=== PATIENT | male | born 1925 | race Caucasian/White ===

== ENCOUNTER 2016-09-29 11:20 | Observation (INO) ==
[2016-09-29] MEDS ORDERED: 0.9 % Sodium Chloride 1,000 ML IVC ONE (11:31)
[2016-09-29] MEDS ORDERED: Ondansetron 4 MG/2 ML VIAL IVP ONE (11:31)
[2016-09-29] MEDS ORDERED: Thiamine (B-1) 100 MG in D5% in Water 50 ML IVPB STA (11:33)
[2016-09-29] MEDS ORDERED: Folic Acid 1 MG in D5% in Water 50 ML IVPB STA (11:33)
[2016-09-29 12:05] LABS: Basophils % 0.2 %; Eosinophils # 0.1 K/mcL (0.0-0.6); Eosinophils % 1.8 %; Hematocrit 45.8 % (37.5-50.1); Hemoglobin 15.4 g/dL (12.9-16.9); Immature Granulocytes % 0.4 % (0-4); Lymphocytes # 0.5 K/mcL (0.6-4.6); Lymphocytes % 9.1 %; Mean Corpuscular HGB Conc 33.6 g/dL (31.6-35.5); Mean Corpuscular Hemoglobin 30.9 pg (28.0-33.3); Mean Platelet Volume 9.8 fL (9.4-12.4); Monocytes # 0.1 K/mcL (0.0-1.3); Neutrophils # 4.3 K/mcL (1.6-8.9); Platelet Count 172 K/mcL (140-400); Red Blood Count 4.98 M/mcL (4.19-5.50); Red Cell Distribution Width 12.8 % (11.5-14.5); Segmented Neutrophils % 87.5 %
[2016-09-29 12:21] LABS: Bilirubin,Urine Negative (Negative); Blood,Urine Trace (Negative); Clarity,Urine Clear (Clear); Color,Urine Yellow (Yellow); Glucose,Urine (UA) Normal (Normal); Ketones,Urine Trace mg/dL (Negative); Leukocyte Esterase,Urine Negative (Negative); Nitrite,Urine Negative (Negative); Protein,Urine 30 mg/dL (Neg-Trace); Specific Gravity,Urine 1.014 (1.010-1.025); Urobilinogen,Urine Normal (Normal)
[2016-09-29 12:22] LABS: BUN/Creatinine Ratio 13 (6-26); Blood Urea Nitrogen 13 mg/dL (8-26); Calcium 9.8 mg/dL (8.6-10.8); Carbon Dioxide 23 mEq/L (19-29); Chloride 104 mEq/L (98-109); Glucose 120 mg/dL (70-99); Lipase 24 Units/L (8-78); Osmolality,Calculated 287 (280-300); Potassium 4.7 mEq/L (3.5-4.5); Sodium 138 mEq/L (136-145); eGFR For African Americans > 60 (> 60); eGFR For Non-African Americans > 60 (> 60)
[2016-09-29 12:24] LABS: Amphetamine Screen,Urine Negative ng/mL (Cutoff=1000); Bacteria,Urine None Seen per hpf (None-Few); Barbiturate Screen,Urine Negative ng/mL (Cutoff=200); Benzodiazepines Screen,Urine Negative ng/mL (Cutoff=200); Cannabinoid Screen,Urine Negative ng/mL (Cutoff = 50); Cocaine Screen,Urine Negative ng/mL (Cutoff= 300); Hyaline Casts,Urine None Seen per lpf (None-Few); Opiate Screen,Urine Negative ng/mL (Cutoff=300); Phencyclidine Screen,Urine Negative ng/mL (Cutoff=25); RBC,Urine 0-3 per hpf (0-3); Squamous Epithelial Cell,Urine Few per lpf (None-Few); WBC,Urine 0-3 per hpf (0-3)
--- NOTE | 2016-09-29 12:35 | Emergency Department Note ---
Disposition Clinical Impression: Abnormal EKG, Elevated troponin Coronary artery disease Qualifiers: Coronary Disease-Associated Artery/Lesion type: unspecified vessel or lesion type [place] vs. transplanted heart: [place] heart Associated angina: without angina Qualified Code(s): I25.10 - Atherosclerotic heart disease of [place] coronary artery without angina pectoris Disposition: Admitted As Inpatient Condition: Fair Referrals: NO,PCP [Non-Partnered Physician] - Forms: Work/School Release, ED Satisfaction Letter Time of Disposition: 15:24 General Adult HPI - General Chief complaint: ED General Medical Stated complaint: shakiness Source: patient, EMS Mode of arrival: ambulatory Limitations: no limitations Nursing Notes Reviewed: Yes Vital Signs Reviewed: Yes - History of Present Illness HPI Narrative: Patient presents to emergency room with complaint of shaking. He woke up this morning a right-sided chest wall pain. He has a long-standing history of anxiety. He called his family complaining of the symptoms then when they arrive to shaking. The symptoms resolved after EMS arrived and provided him with glucose. His Accu-Chek on arrival was 70. There is concern that he might be hypoglycemic. 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 Location: abdomen Radiation: non-radiation Pain Severity: mild Pain Scale: 0 Quality: burning Consistency: now resolved Improves with: nothing Worsens with: nothing Associated symptoms: Reports: denies other symptoms Treatments Prior to Arrival: none - Related Data Home Medications Medication Instructions Recorded Confirmed Aspirin 81 mg PO DAILY 10/11/14 09/29/16 Carvedilol [Coreg] 3.125 mg PO BIDWM 10/11/14 09/29/16 Clopidogrel [Plavix] 75 mg PO DAILY 10/11/14 09/29/16 Docusate Sodium [Dulcolax Stool 100 mg PO DAILY PRN 10/11/14 09/29/16 Softener] Latanoprost [Xalatan] 1 drop LEFT EYE HS 10/11/14 09/29/16 Lisinopril [Zestril] 10 mg PO DAILY 10/11/14 09/29/16 Multivitamin with Minerals 1 each PO DAILY 10/11/14 09/29/16 [Myvitalife] [place]-3 Fatty Acids/Fish Oil [Fish 1 each PO BID 10/11/14 09/29/[address] 1,000 mg Softgel] Pantoprazole Sodium 40 mg PO DAILY 10/11/14 09/29/16 Simvastatin [Zocor] 40 mg PO DAILY 10/11/14 09/29/16 Tamsulosin HCl [Flomax] 0.4 mg PO DAILY 10/11/14 09/29/16 ALPRAZolam [Xanax 0.5 MG Tablet] 0.5 mg PO DAILY PRN 09/29/16 09/29/16 Cholecalciferol (D-3) [Vitamin D] 1,000 unit PO DAILY 09/29/16 09/29/16 Cyanocobalamin (Vitamin B-12) 1,000 mcg SL DAILY 09/29/16 09/29/16 [Vitamin B-12] Hydrocortisone 2.5% CREAM [Cortaid] 1 appl TP DAILY PRN 09/29/16 09/29/16 Allergies Allergy/AdvReac Type Severity Reaction Status Date / Time No Known Allergies Allergy Verified 09/29/16 13:26 All systems ED: reviewed and negative except as stated. Review of Systems: As Per HPI Constitutional: Denies: fever, chills, weakness ENT ED: Denies: ear pain, throat pain Cardiovascular: Reports: chest pain. Denies: palpitations, dyspnea on exertion Respiratory: Denies: cough, dyspnea, wheezes, hemoptysis Gastrointestinal: Denies: abdominal pain, nausea, vomiting, diarrhea, constipation Genitourinary: Denies: urgency, dysuria Musculoskeletal: Denies: back pain, neck pain Integumentary: Denies: rash Neurological: Denies: headache Psychiatric: Reports: anxiety Past Medical History - Past Medical History Attestation: Yes The following information was validated with the patient. Source: patient Medical history: Reports: GERD, hyperlipidemia, hypertension Surgical history: Reports: breast surgery, carotid endarterectomy, coronary bypass (CABG) Psychiatric history: Reports: no psych history - Social History Smoking Status: Former smoker Smokeless Tobacco Status: No Alcohol use: Reports: none Drug use: Reports: none Physical Exam - General Limitations: no limitations General appearance: alert, in no apparent distress - Head Head exam: atraumatic, normocephalic, normal inspection - ENT ENT exam: normal exam, normal oropharynx, mucous membranes moist - Neck Neck exam: Present: normal inspection, full ROM, trachea midline - Chest Chest inspection: Present: normal inspection, symmetric chest wall rise. Absent : tenderness - Respiratory Respiratory exam: Present: normal lung sounds bilaterally. Absent: respiratory distress, accessory muscle use - Cardiovascular Cardiovascular exam: Present: regular rate, normal rhythm, normal heart sounds - Abdominal Exam Abdominal exam: Present: soft, Non-Tender, normal bowel sounds. Absent: tenderness, distention, guarding, rebound, rigidity, Yang's sign, Rovsing's sign, tenderness at McBurney's Point, pulsatile mass, hernia - Extremities Exam Extremities exam: Present: normal inspection, full ROM, normal capillary refill. Absent: tenderness - Back Exam Back exam: Present: normal inspection, full ROM, tenderness - Neurological Exam Neurological exam: Present: alert, oriented X3, CN II-XII intact - Skin Skin exam: Present: warm, dry, intact, normal color Course Course Narrative: Patient seen and examined the time of arrival by EMS. See history of present illness. 89-year-old male presents from home today with complaint of shaking as well as right-sided chest wall pain. He describes it as similar to anxiety. He presented here from home with an Accu-Chek is 70 is given dextrose in transit. He is mentating appropriate now with no shaking. Vital signs are reviewed and are stable. Physical exam is otherwise benign. Head is atraumatic pupils are equal round reactive to light. Patient is answering questions appropriately with no acute signs of neurologic deficit asymmetry or slurring speech. Lungs are clear heart is regular. Abdomen soft nontender nondistended with no guarding or rigidity no peritoneal extending. He has no reproducible symptoms on palpation of the left or right flanks. Patient has no signs of pitting edema swelling in lower extremities at this time. Family is at the bedside they recommended he come in the emergency room today because the presentation symptoms. Physical exam is otherwise benign. Lungs are clear heart is regular patient has tenderness over the anterior chest wall but he has been rubbing on his chest for a while. Denies any chest pain shortness of breath fevers chills nausea vomiting or diarrhea prior to these events. According to family he does have a significant history of vascular related issues including coronary artery disease with four-vessel bypass a lower extremity bypass as well as calcified areas in his vessels at this time. family deny any changes medical history at this time. 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 Denies any alcohol use at this point. Treatment course for alcohol intoxication as well as dehydration chest discomfort and pain and abdominal symptoms to be over this time. EKG troponin labs CT imaging of the abdomen urinalysis lactic acid all ordered this point. Patient reported with a baby aspirin Takes aspirin daily as well as Plavix. Disposition pending treatment course and evaluation here. He did take his morning medications including his Plavix at this time. Concern is noted for multiple etiology of this time including cardiac pulmonary and intra-abdominal. We will continue to monitor until disposition treatment course are completed. EKG was collected initially showing ST depressions in the inferior lateral precordial leads with no acute signs of ST segment elevation. This is different in comparison to an EKG done on 12/14/14. Again patient is not describing any chest pain or symptoms at this time. He has no other complaints he is mentating appropriately and acting appropriately in the bed. - Reevaluation(s) Reevaluation #1: Patient's troponin is markedly elevated at 0.25. Repeat EKG collected at the bedside that shows stable morphology with no acute signs of ST segment elevation. He still has intermittent PVCs. Patient again is still denying chest discomfort or pain. Consultation placed to the on-call personal care attendant Dr. Wallace. Waiting for his call back for evaluation management. Currently patient does not have acute coronary syndrome based on EKG but the troponin is concerning this time. We will follow recommendations from cardiology for heparin drip and intervention. Patient otherwise is resting comfortably in the bed in no distress at this time Time: 12:55 Reevaluation #2: Patient has negative CT of the chest. When discussed the findings with the family. Patient still symptom-free in no distress at this point. Family and no other concerns or issues. We will bring him in the hospital for definitive evaluation of troponin as well as EKG abnormalities. Heparin drip ordered at this time secondary the request of personal care attendant. Detailed review the presentation symptoms medical intervention and workup were discussed with the on -call hospitalist Dr. Alexis. We reviewed the medical intervention including EKGs serial evaluation and angiography. He had no other concerns or symptoms at this time no other complaints or issues. Patient will be admitted the hospital for definitive evaluation by cardiology and medical management by the hospitalist group. Patient is otherwise stable in the bed at this time. We will continue to monitor here in the emergency room until the admission process is completed Time: 15:24 Vital Signs Temperature 98.1 F 09/29/16 11:23 Pulse Rate 100 09/29/16 11:23 Respiratory Rate 22 09/29/16 11:23 Blood Pressure 182/84 09/29/16 11:23 O2 Sat by Pulse Oximetry 93 09/29/16 11:23 Temperature 98.1 F 09/29/16 11:23 Pulse Rate 91 09/29/16 14:27 Respiratory Rate 20 09/29/16 14:27 Blood Pressure 115/61 09/29/16 14:27 O2 Sat by Pulse Oximetry 94 09/29/16 14:27 Oxygen Delivery Oxygen Delivery Nasal Cannula Medical Decision Making - MDM Narrative Medical decision making narrative: Shaking, elevated troponin I, abnormal EKG - Medical Records Medical records reviewed: Yes I reviewed the patient's medical records. - Lab Data Lab results reviewed: Yes I reviewed the patient's lab results. Result diagrams: 09/29/16 11:45 09/29/16 11:45 Lab Results 09/29/16 09/29/16 09/29/16 Range/Units 11:45 11:45 11:45 WBC 4.9 (4.3-11.1) K/mcL RBC 4.98 (4.19-5.50) M/mcL Hgb 15.4 (12.9-16.9) g/dL Hct 45.8 (37.5-50.1) % MCV 92.0 (83.0-100.0) fL MCH 30.9 (28.0-33.3) pg MCHC 33.6 (31.6-35.5) g/dL RDW 12.8 (11.5-14.5) % Plt Count 172 (140-400) K/mcL MPV 9.8 (9.4-12.4) fL Immature Gran % 0.4 (0-4) % Seg Neutrophils % 87.5 % Lymphocytes % 9.1 % Monocytes % 1.0 % Eosinophils % 1.8 % Basophils % 0.2 % Neutrophils # 4.3 (1.6-8.9) K/mcL Lymphocytes # 0.5 L (0.6-4.6) K/mcL Monocytes # 0.1 (0.0-1.3) K/mcL Eosinophils # 0.1 (0.0-0.6) K/mcL Basophils # 0.0 (0.0-0.2) K/mcL Sodium 138 (136-145) mEq/L Potassium 4.7 H (3.5-4.5) mEq/L Chloride 104 (98-109) mEq/L Carbon Dioxide 23 (19-29) mEq/L BUN 13 (8-26) mg/dL Creatinine 1.04 (0.72-1.25) mg/dL Est GFR ( Amer) > 60 (> 60) Est GFR (Non-Af Amer) > 60 (> 60) BUN/Creatinine Ratio 13 (6-26) Glucose 120 H (70-99) mg/dL Calculated Osmolality 287 (280-300) Lactic Acid (0.5-2.2) mmol/L Calcium 9.8 (8.6-10.8) mg/dL Troponin I (0-0.03) ng/mL Lipase 24 (8-78) Units/L Urine Color (Yellow) Urine Clarity (Clear) Urine pH (5.0-8.0) pH Units Ur Specific [place] (1.010-1.025) Urine Protein (Neg-Trace) mg/dL Urine Glucose (UA) (Normal) mg/dL Urine Ketones (Negative) mg/dL Urine Blood (Negative) Urine Nitrite (Negative) Urine Bilirubin (Negative) Urine Urobilinogen (Normal) mg/dL Ur Leukocyte Esterase (Negative) Urine Microscopic RBC (0-3) per hpf Urine Microscopic WBC (0-3) per hpf Ur Squamous Epith Cells (None-Few) per lpf Urine Bacteria (None-Few) per hpf Hyaline Casts (None-Few) per lpf Ur Culture Indicated? (NO) Urine Opiates Screen (Ouqbao=210) ng/mL Ur Barbiturates Screen (Kltggu=196) ng/mL Ur Phencyclidine Scrn (Cutoff=25) ng/mL Ur Amphetamines Screen (Lzdlnq=3026) ng/mL U Benzodiazepines Scrn (Bhsmdy=194) ng/mL Urine Cocaine Screen (Cutoff= 300) ng/mL U Marijuana (THC) Screen (Cutoff = 50) ng/mL Ethyl Alcohol < 10 (0-10) mg/dL 09/29/16 09/29/16 09/29/16 Range/Units 11:45 11:58 11:58 WBC (4.3-11.1) K/mcL RBC (4.19-5.50) M/mcL Hgb (12.9-16.9) g/dL Hct (37.5-50.1) % MCV (83.0-100.0) fL MCH (28.0-33.3) pg MCHC (31.6-35.5) g/dL RDW (11.5-14.5) % Plt Count (140-400) K/mcL MPV (9.4-12.4) fL Immature Gran % (0-4) % Seg Neutrophils % % Lymphocytes % % Monocytes % % Eosinophils % % Basophils % % Neutrophils # (1.6-8.9) K/mcL Lymphocytes # (0.6-4.6) K/mcL Monocytes # (0.0-1.3) K/mcL Eosinophils # (0.0-0.6) K/mcL Basophils # (0.0-0.2) K/mcL Sodium (136-145) mEq/L Potassium (3.5-4.5) mEq/L Chloride (98-109) mEq/L Carbon Dioxide (19-29) mEq/L BUN (8-26) mg/dL Creatinine (0.72-1.25) mg/dL Est GFR ( Amer) (> 60) Est GFR (Non-Af Amer) (> 60) BUN/Creatinine Ratio (6-26) Glucose (70-99) mg/dL Calculated Osmolality (280-300) Lactic Acid (0.5-2.2) mmol/L Calcium (8.6-10.8) mg/dL Troponin I 0.25 H* (0-0.03) ng/mL Lipase (8-78) Units/L Urine Color Yellow (Yellow) Urine Clarity Clear (Clear) Urine pH 6.0 (5.0-8.0) pH Units Ur Specific [place] 1.014 (1.010-1.025) Urine Protein 30 H (Neg-Trace) mg/dL Urine Glucose (UA) Normal (Normal) mg/dL Urine Ketones Trace H (Negative) mg/dL Urine Blood Trace H (Negative) Urine Nitrite Negative (Negative) Urine Bilirubin Negative (Negative) Urine Urobilinogen Normal (Normal) mg/dL Ur Leukocyte Esterase Negative (Negative) Urine Microscopic RBC 0-3 (0-3) per hpf Urine Microscopic WBC 0-3 (0-3) per hpf Ur Squamous Epith Cells Few (None-Few) per lpf Urine Bacteria None Seen (None-Few) per hpf Hyaline Casts None Seen (None-Few) per lpf Ur Culture Indicated? NO (NO) Urine Opiates Screen Negative (Vlxobl=406) ng/mL Ur Barbiturates Screen Negative (Lkacmk=543) ng/mL Ur Phencyclidine Scrn Negative (Cutoff=25) ng/mL Ur Amphetamines Screen Negative (Pfeugz=0732) ng/mL U Benzodiazepines Scrn Negative (Nkrmod=508) ng/mL Urine Cocaine Screen Negative (Cutoff= 300) ng/mL U Marijuana (THC) Screen Negative (Cutoff = 50) ng/mL Ethyl Alcohol (0-10) mg/dL 09/29/16 Range/Units 12:53 WBC (4.3-11.1) K/mcL RBC (4.19-5.50) M/mcL Hgb (12.9-16.9) g/dL Hct (37.5-50.1) % MCV (83.0-100.0) fL MCH (28.0-33.3) pg MCHC (31.6-35.5) g/dL RDW (11.5-14.5) % Plt Count (140-400) K/mcL MPV (9.4-12.4) fL Immature Gran % (0-4) % Seg Neutrophils % % Lymphocytes % % Monocytes % % Eosinophils % % Basophils % % Neutrophils # (1.6-8.9) K/mcL Lymphocytes # (0.6-4.6) K/mcL Monocytes # (0.0-1.3) K/mcL Eosinophils # (0.0-0.6) K/mcL Basophils # (0.0-0.2) K/mcL Sodium (136-145) mEq/L Potassium (3.5-4.5) mEq/L Chloride (98-109) mEq/L Carbon Dioxide (19-29) mEq/L BUN (8-26) mg/dL Creatinine (0.72-1.25) mg/dL Est GFR ( Amer) (> 60) Est GFR (Non-Af Amer) (> 60) BUN/Creatinine Ratio (6-26) Glucose (70-99) mg/dL Calculated Osmolality (280-300) Lactic Acid 2.0 (0.5-2.2) mmol/L Calcium (8.6-10.8) mg/dL Troponin I (0-0.03) ng/mL Lipase (8-78) Units/L Urine Color (Yellow) Urine Clarity (Clear) Urine pH (5.0-8.0) pH Units Ur Specific [place] (1.010-1.025) Urine Protein (Neg-Trace) mg/dL Urine Glucose (UA) (Normal) mg/dL Urine Ketones (Negative) mg/dL Urine Blood (Negative) Urine Nitrite (Negative) Urine Bilirubin (Negative) Urine Urobilinogen (Normal) mg/dL Ur Leukocyte Esterase (Negative) Urine Microscopic RBC (0-3) per hpf Urine Microscopic WBC (0-3) per hpf Ur Squamous Epith Cells (None-Few) per lpf Urine Bacteria (None-Few) per hpf Hyaline Casts (None-Few) per lpf Ur Culture Indicated? (NO) Urine Opiates Screen (Pcwtpt=673) ng/mL Ur Barbiturates Screen (Jggjzq=411) ng/mL Ur Phencyclidine Scrn (Cutoff=25) ng/mL Ur Amphetamines Screen (Wishbb=7042) ng/mL U Benzodiazepines Scrn (Wwtnoy=993) ng/mL Urine Cocaine Screen (Cutoff= 300) ng/mL U Marijuana (THC) Screen (Cutoff = 50) ng/mL Ethyl Alcohol (0-10) mg/dL - Radiology Data Radiology results reviewed: Yes I reviewed the patient's radiology results. CT imaging of the head is negative for acute intracranial pathology. CT imaging of the abdomen is negative for acute abdominal pathology chest x-ray shows possible effusion - EKG Data EKG #1 EKG attestation: Yes I reviewed and interpreted this EKG. EKG shows normal: sinus rhythm, axis, intervals, QRS complexes Rate: normal Rhythm: NSR [place]/QRS: normal ST segment depression in: I, II, III, aVL, v2, v3, v4, v5, v6 When compared to previous EKG there are: changes noted Interpretation: nonspecific ST-T wave changes (12/14/09) EKG #2 EKG attestation: Yes I reviewed and interpreted this EKG. EKG shows normal: sinus rhythm, axis, intervals, QRS complexes Rate: normal Rhythm: NSR [place]/QRS: normal T wave inversions noted in: II, III, aVL, v2, v3, v4, v5, v6 When compared to previous EKG there are: no significant changes Interpretation: no acute changes, unchanged when compared to prior tracing (date ) Critical Care Time Critical Care Time: Yes Total Critical Care Time: 35 Attestation: Critical care performed: Time is exclusive of separately billable procedures. Time includes: direct patient care, patient reassessment, coordination of patient care, interpretation of data (laboratory data, radiology data, and respiratory data), review of patient's medical records, medical consultation and documentation of patient care. Procedures included in critical care time: Procedures excluded from critical care time:
[2016-09-29] MEDS ORDERED: *HR* Heparin 5,000 UNIT/ML VIAL IVP PRN (15:06)
[2016-09-29] MEDS ORDERED: *HR* Heparin 5,000 UNIT/ML VIAL IVP ONE (15:06)
[2016-09-29 15:58] LABS: INR 1.2; Prothrombin Time 12.8 Seconds (9.4-12.1)
[2016-09-29 16:01] LABS: Activated Partial Thrombo Time 30.4 Seconds (26.0-36.0)
[2016-09-29] MEDS: Heparin 25,000 UNIT/500 ML D5W 25,000 UNIT/500 ML MLS IVC SCH (16:34)
[2016-09-29] MEDS ORDERED: *HR* HYDROcodone/Acet 5/325 mg TABLET PO PRN (17:26)
[2016-09-29] MEDS ORDERED: Ondansetron 4 MG/2 ML VIAL IVP PRN (17:26)
[2016-09-29] MEDS ORDERED: Acetaminophen 325 MG TABLET PO PRN (17:26)
[2016-09-29] MEDS ORDERED: *HR* Morphine 2 MG/ML SYRINGE IVP PRN (17:26)
[2016-09-29] MEDS ORDERED: Naloxone 0.4 MG/ML INJ IVP PRN (17:26)
[2016-09-29] MEDS ORDERED: ALPRAZolam 0.5 MG TABLET PO PRN (17:33)
[2016-09-29] MEDS: Cholecalciferol (D-3) 1,000 UNIT TABLET PO SCH (18:25)
[2016-09-29] MEDS: Cyanocobalamin (B-12) 1,000 MCG TABLET PO SCH (18:25)
[2016-09-29] MEDS: Aspirin 81 MG TAB.CHEW PO SCH (18:25)
[2016-09-29] MEDS: 0.9 % Sodium Chloride 1,000 ML IVC SCH (18:25)
[2016-09-29] MEDS: Pantoprazole 40 MG VIAL IVP SCH (18:25)
--- NOTE | 2016-09-29 18:37 | Internal Med History&Physical ---
<Channing Wright - Last Filed: 09/29/16 22:02> Date of Encounter: 09/29/16 Time of Encounter: 16:45 Assessment and Plan (1) Abnormal EKG Current visit: Yes Status: Acute Patient presents with abnormal EKG today which showed sinus rhythm with frequent ventricular premature complexes, indeterminate axis, moderate ST depression. Will repeat EKG. Cardiology consult ordered. EV echocardiogram and bilateral carotid Doppler duplex imaging ordered. Will trend troponins x2. (2) Elevated troponin Current visit: Yes Status: Acute Patient presents with elevated troponin of 0.25 on admission to the ED. Patient has history of quadruple bypass 12 years ago. Patient denies chest pain or OK symptoms but EKG today shows sinus rhythm with frequent ventricular premature complexes, indeterminate axis, moderate ST depression. Cardiology consult ordered in ED. Will trend troponins x2. Patient to be placed on continuous cardiac telemetry with supplemental O2 and continuous SpO2 monitoring. EV echocardiogram and bilateral carotid Doppler duplex imaging ordered. (3) Occasional tremors Current visit: Yes Status: Acute Patient presents with report of acute and uncontrollable tremors this morning while at home. Patient reported he got up at 5 a.m. and took several sips of wine and went back to bed. Patient states he did not eat breakfast this morning. Squad checked his blood glucose which was 70 when they arrived and they administered glucose. Patient denies history of diabetes. CT/CTAs today are all unremarkable for CVA. Orthostatic vital signs and BPs ordered. Blood glucose monitoring ordered Q6 with low-dose correction insulin and hypoglycemia protocol ordered. (4) Hypoglycemia Current visit: Yes Status: Acute Patient presents with acute hypoglycemia prior to admission to the ED today with blood glucose of 70. Patient was given glucose by the squad. Patient denies history of diabetes. A1c ordered. Blood glucose monitoring Q6 ordered with low-dose correction insulin sliding scale with hypoglycemia protocol ordered if necessary. (5) GERD (gastroesophageal reflux disease) Current visit: Yes Status: Chronic Patient presents with history of chronic gastroesophageal reflux disease. IVP Protonix 40 mg daily ordered as well as IV Zofran when necessary. Qualifiers: Esophagitis presence: esophagitis presence not specified Qualified Code(s) : K21.9 - Gastro-esophageal reflux disease without esophagitis (6) Essential hypertension Current visit: Yes Status: Chronic Patient presents with history of chronic hypertension. Will continue patient's carvedilol and lisinopril. It is unclear if patient's tremors prior to arriving in ED was due to orthostatic hypotension, so will order orthostatic vital signs and blood pressures. Patient and vital signs to be monitored. (7) Hyperlipidemia Current visit: Yes Status: Chronic Patient presents with history of chronic hyperlipidemia. Lipid panel ordered. Will continue patient's simvastatin. Qualifiers: Hyperlipidemia type: pure hypercholesterolemia Qualified Code(s): E78.00 - Pure hypercholesterolemia, unspecified; E78.0 - Pure hypercholesterolemia (8) DVT prophylaxis Current visit: Yes Status: Acute Patient to be placed on DVT prophylaxis due to current admission protocol, bed rest status, and current symptomatology. IV heparin drip started in ED and will be continued. Will assess patient for signs of bleeding. Internal Medicine - H&P: HPI Chief complaint: Uncontrollable shaking Admitted From: Emergency Dept Plans for Post Hospital Care: Home History of present illness: Mr. Santo is a 89 year old male who presents from the ED with chief complaint of uncontrollable shaking this morning when he woke up at approximately 9 a.m. Patient reports he did not eat this morning but at approximately 5 a.m. he states that he got up and took several sips of wine and went back to bed. 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 When jelani arrived to bring him to the ED, his blood glucose was 70. He was given glucose prior to arriving at the ED. Patient denies any other symptoms or complaints including chest pain, shortness of breath, recent illness, nausea, vomiting, abdominal pain, dizziness, headache, pre-syncope, or syncope. He states this has never happened before. His family also reports that the patient sometimes takes an extra Xanax. Patient lives alone, so family is not sure of his medication compliance with respect to the Xanax. Upon admission, Mr. Tim' s troponin was 0.25. Patient's medical history includes GERD, HTN, HLD, and CAD. Patient had carotid endartectomy several years ago as well as quadruple bypass surgery 12 years ago. Patient is at moderate risk for cardiac event based on his history and current symptoms and will be placed as observation status with orders for continuous cardiac telemetry, IV heparin drip, supplemental O2 with continuous SpO2 monitoring, trended troponins x2, EV echocardiogram, bilateral carotid Doppler duplex imaging, as well as blood glucose monitoring Q6 to assess for hypoglycemia. Patient was also instructed that he is falls precautions/up with assist/bed rest with bed side commode with assist only due to current instability. Consults for cardiology, nutrition, PT, OT, and Office Supervisor placed. Patient to be monitored closely for increasing signs of cardiac distress and hypoglycemia. Time spent with patient > 40 minutes. Past Med Surg Social Fam HX - Past Medical History Source: patient Medical history: GERD, hyperlipidemia, hypertension Psychiatric history: no psych history - Past Surgical History Surgical History: breast surgery, carotid endarterectomy, coronary bypass (CABG ) (Quadruple 12 years ago) - Social History Smoking Status: Former smoker Smokeless Tobacco Status: No Alcohol use: rarely Drug use: none Occupational status: retired Current living situation: Home - Independent Activity Level: Independent ambulation Recent Out of Country Travel Within the Last 8 Weeks: No Exposure or Possible Exposure to Illness During Travel: No - Family History Father Living Status: Hx Family Cardiac Disorders: Yes ([place]) Internal Medicine - H&P: Meds Aspirin 81 mg PO DAILY 10/11/14 [History] Carvedilol [Coreg] 3.125 mg PO BIDWM 10/11/14 [History] Clopidogrel [Plavix] 75 mg PO DAILY 10/11/14 [History] Docusate Sodium [Dulcolax Stool Softener] 100 mg PO DAILY PRN 10/11/14 [History] Latanoprost [Xalatan] 1 drop LEFT EYE HS 10/11/14 [History] Lisinopril [Zestril] 10 mg PO DAILY 10/11/14 [History] Multivitamin with Minerals [Myvitalife] 1 each PO DAILY 10/11/14 [History] [place]-3 Fatty Acids/Fish Oil [Fish Oil Dr 1,000 mg Softgel] 1 each PO BID [History] Pantoprazole Sodium 40 mg PO DAILY 10/11/14 [History] Simvastatin [Zocor] 40 mg PO DAILY 10/11/14 [History] Tamsulosin HCl [Flomax] 0.4 mg PO DAILY 10/11/14 [History] ALPRAZolam [Xanax 0.5 MG Tablet] 0.5 mg PO DAILY PRN 09/29/16 [History] Cholecalciferol (D-3) [Vitamin D] 1,000 unit PO DAILY 09/29/16 [History] Cyanocobalamin (Vitamin B-12) [Vitamin B-12] 1,000 mcg SL DAILY 09/29/16 [ History] Hydrocortisone 2.5% CREAM [Cortaid] 1 appl TP DAILY PRN 09/29/16 [History] Allergies No Known Allergies Allergy (Verified 09/29/16 13:26) All Systems PM: A 10-system review of systems was performed and is negative for pertinent findings except as documented above in the HPI. - Constitutional Constitutional: other (Uncontrollable shaking this morning that has since resolved), no chills, no fever(s), no night sweats - EENT Eyes: no change in vision, no discharge, no pain, no photophobia Ears: no ear discharge, no ear pain, no tinnitus Nose, mouth and throat: no dysphagia, no nasal discharge, no neck pain, no sore throat - Breasts Breasts: as per HPI - Cardiovascular Cardiovascular ROS IM: no chest pain, no diaphoresis, no dyspnea, no lightheadedness, no palpitations, no syncope - Respiratory Respiratory: no cough, no dyspnea, no wheezing, no excessive phlegm production - Gastrointestinal Gastrointestinal: no abdominal pain, no diarrhea, no hematemesis, no hematochezia, no melena, no nausea, no vomiting - Genitourinary Genitourinary ROS male: as per HPI, urinary frequency, urinary incontinence - Musculoskeletal Musculoskeletal ROS IM: no numbness, no tingling - Integumentary Integumentary IM: no rash, no unusual bruising - Neurological Neurological ROS: as per HPI, tremor(s), no confusion, no convulsions, no focal weakness, no numbness, no tingling - Psychiatric Psychiatric: as per HPI - Endocrine Endocrine IM: as per HPI - Hematologic/Lymphatic Hematologic/Lymphatic: no easy bruising - Allergic/Immunologic Allergic/Immunologic: as per HPI - Constitutional Vitals: Temp Pulse Resp BP Pulse Ox 97.9 F 84 18 117/67 93 09/29/16 16:20 09/29/16 16:20 09/29/16 16:20 09/29/16 16:20 09/29/16 16:20 General appearance: Present: cooperative, A&O X 3, pleasant, no acute distress, underweight, answers questions appropriately - Head Head exam: Present: atraumatic, normocephalic - Eye Eye exam: Present: PERRL, conjuntiva pink, sclera anicteric Pupils: Present: PERRL - ENT ENT exam: Present: normal exam, normal external ear exam - Neck Neck exam general surgery: Present: supple, trachea midline. Absent: lymphadenopathy - Respiratory Respiratory exam: Present: CTAB. Absent: accessory muscle use, rales, rhonchi, wheezes - Cardiovascular Cardiovascular exam: Present: RRR, +S1, +S2. Absent: diastolic murmur, gallop, rubs, systolic murmur - GI/Abdominal GI/Abdominal exam: Present: normal bowel sounds, soft, no peritoneal signs. Absent: distended, tenderness - Rectal Rectal exam: Present: deferred - Additional comments: exam deferred. - Extremities Exam Extremities exam: Present: warm, radial pulses palpable and symetrical. Absent : calf tenderness, cyanotic, pedal edema - Back Exam Back exam: Present: normal inspection - Neurological Exam Neurological exam: Present: alert, CN II-XII intact, oriented X3, no focal deficits. Absent: pronater drift, facial droop, speech deficit - Psychiatric Psychiatric exam: Present: normal affect, normal mood - Skin Skin exam: Present: dry, intact Internal Med - H&P Results - Labs CBC & Chem 7: 09/29/16 11:45 09/29/16 11:45 - EKG Data EKG shows normal: sinus rhythm - EKG Data Prior EKG available for review: yes When compared to previous EKG: there are significant changes EKG comments: 09/29/16 18:50 EKG dated 12/14/14 shows sinus rhythm. EKG dated 09/29/16 shows sinus rhythm with frequent ventricular premature complexes, indeterminate axis, and moderate ST depression. - Diagnostic Studies Chest x-ray Additional comments: Impressions Chest X-Ray 09/29/16 11:32 IMPRESSION: Small left-sided effusion and left basilar airspace disease which could represent atelectasis or superimposed infection. D/ / Michael Guerra / Michael Guerra Interpreting Provider: Michael Guerra CT scan - head Additional comments: Impressions Head CT 09/29/16 11:33 IMPRESSION: No acute intracranial abnormality. Mild chronic small vessel white matter ischemic changes. Small right-sided basal ganglia lacunar infarct. D/ / Reggie Hickey MD / Reggie Hickey MD Interpreting Provider: Reggie Hickey MD CT scan - abdomen Additional comments: Impressions Abdomen/Pelvis CT 09/29/16 11:31 IMPRESSION: 1. No acute process demonstrated 2. Colonic diverticulosis with no evidence of diverticulitis 3. Prostatic enlargement, with urinary bladder diverticula compatible with chronic bladder outlet obstruction D/ / Cristofer Jon MD / Cristofer Jon MD Interpreting Provider: Cristofer Jon MD Other Images Additional comments: Impressions Abdomen/Pelvis CTA 09/29/16 13:45 IMPRESSION: 1. No evidence of aortic dissection or aneurysm. 2. Emphysema with bilateral lower lobe peribronchial thickening and atelectasis. Cannot exclude post infectious origin. 3. Fatty liver. 4. Diverticulosis. 5. Atherosclerosis. D/ / 09/29/2016 14:58:10 Jean Boone MD / Sue Beebe Interpreting Provider: Jean Boone MD Chest CTA 09/29/16 13:45 IMPRESSION: 1. No evidence of aortic dissection or aneurysm. 2. Emphysema with bilateral lower lobe peribronchial thickening and atelectasis. Cannot exclude post infectious origin. 3. Fatty liver. 4. Diverticulosis. 5. Atherosclerosis. D/ / 09/29/2016 14:58:10 Jean Boone MD / Sue Beebe Interpreting Provider: Jean Boone MD <[email or web address] - Last Filed: 09/30/16 07:16> Date of Encounter: 09/30/16 Internal Medicine - H&P: HPI History of present illness: Mr. Santo is a 89 year old male All Systems PM: A 10-system review of systems was performed and is negative for pertinent findings except as documented above in the HPI. - Constitutional Vitals: Temp Pulse Resp BP Pulse Ox 97.9 F 67 18 112/52 93 09/30/16 07:13 09/30/16 07:13 09/30/16 07:13 09/30/16 07:13 09/30/16 07:13 Internal Med - H&P Results - Labs CBC & Chem 7: 09/30/16 06:21 09/30/16 06:21 Labs: Short CBC 09/30/16 Range/Units 06:21 WBC 8.6 D (4.3-11.1) K/mcL Hgb 13.5 D (12.9-16.9) g/dL Hct 40.6 (37.5-50.1) % Plt Count 136 L (140-400) K/mcL Neutrophils # 6.8 (1.6-8.9) K/mcL BMP 09/30/16 06:21 Sodium 138 Potassium 4.0 Chloride 107 Carbon Dioxide 26 BUN 13 Creatinine 1.14 Glucose 103 H Calcium 8.5 L Cardiac Enzymes 09/29/16 09/30/16 Range/Units 19:18 01:11 Troponin I 6.90 H* 7.97 H* (0-0.03) ng/mL - Attending Attestation I saw and examined pt. I have discussed with [employer]ER [employer] regarding the management plan. Agree with documentation.
[2016-09-29] MEDS ORDERED: Dextrose Gel 15 GM PO PRN ×2 (18:42)
[2016-09-29] MEDS ORDERED: *HR* Dextrose 50 % in Water (Syg) 50 ML SYRINGE IVP PRN (18:42)
[2016-09-29] MEDS ORDERED: D5% in Water 1,000 ML IVC PRN (18:42)
--- NOTE | 2016-09-29 19:37 | Event Note ---
Date of Encounter: 09/29/16 Time of Encounter: 19:00 I saw and examined pt. I discussed with SUPERVISOR [employer] regarding management plan. Pt has present to ER with shaking. EMS found hypoglycemia. Shaking improved with juice. However, pt was found elevated troponin and EKG changes. Pt has Hx of CAD s/p stent. No chest pain. Cardio consulted by ER, heparin drip started. Will cont closely monitor pt, track 3 sets of troponin, Echo, cardio will see pt. Pt c/o RUQ pain, will check Abd US to r/o liver, billiary disease.
[2016-09-29] MEDS ORDERED: Insulin LISPRO 300 UNITS/3 ML VIAL SQ SCH (21:00)
[2016-09-29 21:28] LABS: Activated Partial Thrombo Time 178.3 Seconds (26.0-36.0)
[2016-09-29 21:35] LABS: Heparin anti-factor XA UFH 0.75 IU/mL (0.30-0.70)
[2016-09-30] MEDS: Latanoprost 2.5 ML BOTTLE LEFT EYE SCH ×2 (00:25→21:25)
[2016-09-30] MEDS: Insulin LISPRO 300 UNITS/3 ML VIAL SQ SCH ×2 (06:05→12:38)
--- NOTE | 2016-09-30 06:32 | Electrocardiograph Report ---
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
--- NOTE | 2016-09-30 06:35 | Electrocardiograph Report ---
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
[2016-09-30 06:49] LABS: Basophils % 0.2 %; Eosinophils # 0.2 K/mcL (0.0-0.6); Eosinophils % 2.1 %; Hematocrit 40.6 % (37.5-50.1); Immature Granulocytes % 0.2 % (0-4); Mean Corpuscular HGB Conc 33.3 g/dL (31.6-35.5); Mean Corpuscular Hemoglobin 31.5 pg (28.0-33.3); Mean Corpuscular Volume 94.6 fL (83.0-100.0); Mean Platelet Volume 10.6 fL (9.4-12.4); Monocytes # 0.6 K/mcL (0.0-1.3); Monocytes % 6.5 %; Neutrophils # 6.8 K/mcL (1.6-8.9); Platelet Count 136 K/mcL (140-400); Red Blood Count 4.29 M/mcL (4.19-5.50); Red Cell Distribution Width 13.2 % (11.5-14.5)
[2016-09-30 06:52] LABS: Hemoglobin 13.5 g/dL (12.9-16.9)
[2016-09-30 06:59] LABS: INR 1.2; Prothrombin Time 12.7 Seconds (9.4-12.1)
[2016-09-30 07:02] LABS: Activated Partial Thrombo Time 45.4 Seconds (26.0-36.0)
[2016-09-30 07:06] LABS: BUN/Creatinine Ratio 11 (6-26); Blood Urea Nitrogen 13 mg/dL (8-26); Calcium 8.5 mg/dL (8.6-10.8); Carbon Dioxide 26 mEq/L (19-29); Chloride 107 mEq/L (98-109); Chol/HDL Ratio 4.6 (0-4.9); Cholesterol 115 mg/dL (< 200); Glucose 103 mg/dL (70-99); HDL Cholesterol 25 mg/dL (40-59); LDL Cholesterol,Calculated 60 mg/dL (0-99); Magnesium 1.6 mg/dL (1.6-2.6); Osmolality,Calculated 286 (280-300); Sodium 138 mEq/L (136-145); Triglycerides 150 mg/dL (< 150); eGFR For African Americans > 60 (> 60); eGFR For Non-African Americans > 60 (> 60)
[2016-09-30 07:11] LABS: Hemoglobin A1C 5.6 %
[2016-09-30] MEDS: Cholecalciferol (D-3) 1,000 UNIT TABLET PO SCH (09:44)
[2016-09-30] MEDS: Aspirin 81 MG TAB.CHEW PO SCH (09:45)
[2016-09-30] MEDS: Cyanocobalamin (B-12) 1,000 MCG TABLET PO SCH (09:45)
[2016-09-30] MEDS: Pantoprazole 40 MG VIAL IVP SCH (09:49)
[2016-09-30] MEDS: 0.9 % Sodium Chloride 1,000 ML IVC SCH (09:52)
[2016-09-30] MEDS: *HR* Heparin 5,000 UNIT/ML VIAL IVP PRN (09:57)
--- NOTE | 2016-09-30 11:02 | Cardiology Consult Note ---
Date of Encounter: 09/30/16 Time of Encounter: 11:00 Assessment and Plan (1) NSTEMI (non-ST elevated myocardial infarction) Current Visit: Yes Status: Acute Troponin elevation 0.25, 6.9, 7.97. Patient denies chest pain. Denied chest pain prior to CABG in 2004. CXR showed small left side pleural effusion. Left basilar airspace disease which could represent superimposed inf vs atelectasis. CTA negative for dissection or aneurysm. Emphysema in BLL peribronchial thickening and atelectasis. Cannot rule out infection. WBC are normal and he is afebrile. Primary team following. Continue heparin gtt. TTE pending. LHC indication, risks, benefits, and alternatives discussed. Patient and daughter are considering. Asa, statin, and bb. (2) Coronary artery disease Current Visit: Yes Status: Chronic H/o 3 vessel CABG in 2004. Denies LHC since that time. Last TTE 06/02/14- EF 60%. Mild LVH. Mild aortic regurgitation, moderately calcified aortic valve. No aortic stenosis. Continue asa, statin, and bb. Qualifiers: Coronary Disease-Associated Artery/Lesion type: [place] artery [place] vs. transplanted heart: [place] heart Associated angina: without angina Qualified Code(s): I25.10 - Atherosclerotic heart disease of [place] coronary artery without angina pectoris Discussion w patient/family: The assessment and plan as outlined above was discussed with the patient and/or family members who expressed understanding and agreement. All questions were answered. Thank you for involving us in the care of your patient. Please call with any questions. History of Present Illness Consult date: 09/30/16 Requesting physician: Ceci Alexis Consult reason: NSTEMI Chief complaint: uncontrollable shaking History of present illness: Mr. Santo is a 89 year old male with a history of CABG x 3 vessel in 2004, CEA in 2007, PVD s/p femoral byass, HLD, and hypertension who presented with c/o uncontrollable shaking this morning. He called his girlfriend who could not understand what he was trying to say. She decided to call for help. He was brought to the ER. He was documented to have mildly low blood sugar at 70 and was given glucose in the squad. EKG showed ischemic changes in the inferior leads. Initial troponin was 0.25. Patient was placed on ACS protocal and cardiology consulted. Patient was concerned he was having ETOH withdrawl symptoms after drinking two drinks of wine last night. Daughter says he quit heavy drinking in 1974 and only drinks one drink occasionally. Patient denies chest pain or SOB. C/o right flank pain yesterday. CT of the abdomen showed no acute finding. RUQ US was negative. Denies chest pain prior to his CABG. Past Med Surg Social Fam HX - Past Medical History Medical history: coronary artery disease, GERD, hyperlipidemia, hypertension Psychiatric history: no psych history - Past Surgical History Surgical History: breast surgery, carotid endarterectomy, coronary bypass (CABG ) (Quadruple 12 years ago) - Social History Smoking Status: Former smoker Smokeless Tobacco Status: No Alcohol use: rarely Drug use: none - Family History Father Living Status: Hx Family Cardiac Disorders: Yes ([place]) Medications and Allergies Aspirin 81 mg PO DAILY 10/11/14 [History] Carvedilol [Coreg] 3.125 mg PO BIDWM 10/11/14 [History] Clopidogrel [Plavix] 75 mg PO DAILY 10/11/14 [History] Docusate Sodium [Dulcolax Stool Softener] 100 mg PO DAILY PRN 10/11/14 [History] Latanoprost [Xalatan] 1 drop LEFT EYE HS 10/11/14 [History] Lisinopril [Zestril] 10 mg PO DAILY 10/11/14 [History] Multivitamin with Minerals [Myvitalife] 1 each PO DAILY 10/11/14 [History] [place]-3 Fatty Acids/Fish Oil [Fish Oil Dr 1,000 mg Softgel] 1 each PO BID [History] Pantoprazole Sodium 40 mg PO DAILY 10/11/14 [History] Simvastatin [Zocor] 40 mg PO DAILY 10/11/14 [History] Tamsulosin HCl [Flomax] 0.4 mg PO DAILY 10/11/14 [History] ALPRAZolam [Xanax 0.5 MG Tablet] 0.5 mg PO DAILY PRN 09/29/16 [History] Cholecalciferol (D-3) [Vitamin D] 1,000 unit PO DAILY 09/29/16 [History] Cyanocobalamin (Vitamin B-12) [Vitamin B-12] 1,000 mcg SL DAILY 09/29/16 [ History] Hydrocortisone 2.5% CREAM [Cortaid] 1 appl TP DAILY PRN 09/29/16 [History] Allergies No Known Allergies Allergy (Verified 09/29/16 13:26) All Systems Review: A 10-system review of systems was performed and is negative for pertinent findings except as documented above in the HPI. Physical Examination Vital Signs, Last 4 Hours Temp Pulse Resp BP Pulse Ox 09/30/16 07:13 97.9 F 67 18 112/52 93 General: Conversant, No Apparent Distress HEENT: Atraumatic, Normocephaly, Mucus Membranes Moist Neck: No JVD, Normal carotid pulses Cardiac: Reg Rate and Rhythm, Normal S1 and S2, No Murmur Lungs: Normal Breath Sounds, No Wheeze, Rales, Rhonchi Neuro: Alert and responsive, No focal deficits noted Abdomen: Soft, Non-Tender Skin: No rashes noted on visualized skin Musculoskeletal: No Chest Wall Tenderness Extremities: No Clubbing, No Cyanosis, No Edema, Normal Pulses Results 09/30/16 06:21 09/30/16 06:21 Lab Results 09/29/16 09/29/16 09/30/16 19:18 20:52 01:11 WBC Hgb Hct Plt Count INR APTT 178.3 H* D Sodium Potassium Chloride Carbon Dioxide BUN Creatinine Glucose Calcium Magnesium Troponin I 6.90 H* 7.97 H* 09/30/16 09/30/16 09/30/16 06:21 06:21 06:21 WBC 8.6 D Hgb 13.5 D Hct 40.6 Plt Count 136 L INR 1.2 APTT 45.4 H D Sodium 138 Potassium 4.0 Chloride 107 Carbon Dioxide 26 BUN 13 Creatinine 1.14 Glucose 103 H Calcium 8.5 L Magnesium 1.6 Troponin I - Imaging and Cardiology Echo: pending - EKG Interpretation EKG results cardiology: personally reviewed (SR with ST depression in the inferior leads) Consult Discharge Plan - Plan Referrals: Ramsey Walker MD [Primary Care Provider] -
--- NOTE | 2016-09-30 14:37 | Internal Med Progress Note ---
Date of Encounter: 09/30/16 Time of Encounter: 14:30 - Assessment and plan (1) NSTEMI (non-ST elevated myocardial infarction) Current Visit: Yes Status: Acute Assessment and plan: Cardiology input appreciated Chest pain resolved at this time patient and family prefer medical management at this time until further discussion with cardiology will continue heparin gtt for 48hours continue asa, plavix, statin, and BB Statin changed to Atorvastatin by cardio will continue tele monitoring (2) Essential hypertension Current Visit: Yes Status: Chronic Assessment and plan: BP within acceptable range continue home medications (3) Hyperlipidemia Current Visit: Yes Status: Chronic Assessment and plan: continue statin therapy Qualifiers: Hyperlipidemia type: pure hypercholesterolemia Qualified Code(s): E78.00 - Pure hypercholesterolemia, unspecified; E78.0 - Pure hypercholesterolemia (4) Hypoglycemia Current Visit: Yes Status: Resolved Assessment and plan: resolved at this time no history of DM reported will monitor accucheck q6h until dinner time, if remains stable, will d/c accu checks Cardiac diet (5) DVT prophylaxis Current Visit: Yes Status: Acute Assessment and plan: anticoagulated with heparin Gtt - Subjective Interval history: Patient seen and examined with family present at bedside. Resting in bed and denies any discomfort at this time. Initially this morning patient and family were interested in going ahead with [facility] however after receiving 2D echo results they would like to speak with cardiology again before finally deciding on what they would like to do. At this time patient is to be medically optimized. Advance directives were discussed with the patient and family. Patient wishes to remain Full code. - Constitutional Vitals: Temp Pulse Resp BP Pulse Ox 97.6 F 67 18 133/58 97 09/30/16 11:37 09/30/16 11:37 09/30/16 11:37 09/30/16 11:37 09/30/16 11:37 General appearance: Present: cooperative, A&O X 3, pleasant, no acute distress, answers questions appropriately - Head Head exam: Present: atraumatic, normocephalic - Eye Eye exam: Present: normal appearance, conjuntiva pink, sclera anicteric - Respiratory Respiratory exam: Present: CTAB. Absent: accessory muscle use, rales, rhonchi, wheezes - Cardiovascular Cardiovascular exam: Present: RRR, +S1, +S2. Absent: diastolic murmur, gallop, rubs, systolic murmur - GI/Abdominal GI/Abdominal exam: Present: normal bowel sounds, soft, no peritoneal signs. Absent: distended, tenderness - Extremities Exam Extremities exam: Present: warm, radial pulses palpable and symetrical. Absent : calf tenderness, cyanotic, pedal edema - Neurological Exam Neurological exam: Present: alert, oriented X3 - Psychiatric Psychiatric exam: Present: normal affect, normal mood Internal Medicine: Result - Labs CBC & Chem 7: 09/30/16 06:21 09/30/16 06:21 Labs: Short CBC 09/30/16 Range/Units 06:21 WBC 8.6 D (4.3-11.1) K/mcL Hgb 13.5 D (12.9-16.9) g/dL Hct 40.6 (37.5-50.1) % Plt Count 136 L (140-400) K/mcL Neutrophils # 6.8 (1.6-8.9) K/mcL BMP 09/30/16 06:21 Sodium 138 Potassium 4.0 Chloride 107 Carbon Dioxide 26 BUN 13 Creatinine 1.14 Glucose 103 H Calcium 8.5 L Cardiac Enzymes 09/29/16 09/30/16 Range/Units 19:18 01:11 Troponin I 6.90 H* 7.97 H* (0-0.03) ng/mL - ABG Interpretation ABG results: PT/INR, D-dimer PT 12.7 Seconds (9.4-12.1) H 09/30/16 06:21 - Impressions Impressions Abdomen Ultrasound 09/30/16 09:00 IMPRESSION: Unremarkable right upper quadrant ultrasound. D/ / 09/30/2016 09:24:38 Ambrosio Llanes MD / reny Interpreting Provider: Ambrosio Llanes MD Consult Discharge Plan - Plan Referrals: Ramsey Walker MD [Primary Care Provider] -
--- NOTE | 2016-09-30 17:50 | Electrocardiograph Report ---
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
[2016-10-01] MEDS: Heparin 25,000 UNIT/500 ML D5W 25,000 UNIT/500 ML MLS IVC SCH (04:10)
[2016-10-01 08:20] LABS: Basophils % 0.4 %; Eosinophils # 0.2 K/mcL (0.0-0.6); Eosinophils % 2.1 %; Hematocrit 45.5 % (37.5-50.1); Immature Granulocytes % 0.4 % (0-4); Immature Platelets 4.9 % (1.1-6.1); Lymphocytes # 1.2 K/mcL (0.6-4.6); Lymphocytes % 15.8 %; Mean Corpuscular Hemoglobin 30.6 pg (28.0-33.3); Mean Corpuscular Volume 92.9 fL (83.0-100.0); Mean Platelet Volume 10.5 fL (9.4-12.4); Monocytes # 0.7 K/mcL (0.0-1.3); Monocytes % 8.5 %; Neutrophils # 5.6 K/mcL (1.6-8.9); Platelet Count 162 K/mcL (140-400); Segmented Neutrophils % 72.8 %
[2016-10-01 08:37] LABS: BUN/Creatinine Ratio 12 (6-26); Blood Urea Nitrogen 11 mg/dL (8-26); Carbon Dioxide 26 mEq/L (19-29); Chloride 105 mEq/L (98-109); Glucose 121 mg/dL (70-99); Magnesium 1.7 mg/dL (1.6-2.6); Osmolality,Calculated 285 (280-300); Phosphorous 2.7 mg/dL (2.3-4.7); Potassium 4.1 mEq/L (3.5-4.5); Sodium 137 mEq/L (136-145); eGFR For African Americans > 60 (> 60); eGFR For Non-African Americans > 60 (> 60)
[2016-10-01] MEDS: Aspirin 81 MG TAB.CHEW PO SCH (08:54)
[2016-10-01] MEDS: Cyanocobalamin (B-12) 1,000 MCG TABLET PO SCH (08:54)
[2016-10-01] MEDS: Cholecalciferol (D-3) 1,000 UNIT TABLET PO SCH (08:54)
[2016-10-01] MEDS: Pantoprazole 40 MG VIAL IVP SCH (08:56)
[2016-10-01] MEDS: *HR* Heparin 5,000 UNIT/ML VIAL IVP PRN (09:05)
--- NOTE | 2016-10-01 11:26 | Cardiology Progress Note ---
Date of Encounter: 10/01/16 Time of Encounter: 11:24 Assessment and Plan (1) NSTEMI (non-ST elevated myocardial infarction) Current Visit: Yes Status: Acute Troponin elevation 0.25, 6.9, 7.97. Patient denies chest pain. Denied chest pain prior to CABG in 2004. TTE completed. revealed EF 55%. No WMA seen. There is moderate aortic stenosis. Mild to moderate mitral regurgitation, mild to moderate tricuspid regurgitation. Mild pulmonary hypertension. 24 hour telemetry review shows avg HR 99 bpm. Occasional PVC, couplets and one robin seen. Carvedilol was increased. Patient and family opted for medical management. He is not a candidate for cardiac rehab. Asa, statin, and bb. Carvedilol increased. Simvistatin changed to atorvastatin. D/c heparin gtt today. Out-pt f/u will be scheduled in one week. Okay for discharge from cardiology standpoint. Please call with questions. (2) Coronary artery disease Current Visit: Yes Status: Chronic H/o 3 vessel CABG in 2004. Denies LHC since that time. Last TTE 06/02/14- EF 60%. Mild LVH. Mild aortic regurgitation, moderately calcified aortic valve. No aortic stenosis. Continue asa, statin, and bb. Qualifiers: Coronary Disease-Associated Artery/Lesion type: [place] artery [place] vs. transplanted heart: [place] heart Associated angina: without angina Qualified Code(s): I25.10 - Atherosclerotic heart disease of [place] coronary artery without angina pectoris Discussion w patient/family: The assessment and plan as outlined above was discussed with the patient and/or family members who expressed understanding and agreement. All questions were answered. Thank you for involving us in the care of your patient. Please call with any questions. Subjective Principal diagnosis: NSTEMI Interval history: Patient increasingly confused today. Denies chest pain. Daughter at his bedside. They deny questions. Objective Vital Signs, Last 4 Hours Temp Pulse Resp BP Pulse Ox 10/01/16 11:18 98.2 F 83 16 156/74 95 General: Conversant, No Apparent Distress HEENT: Atraumatic, Normocephaly, Mucus Membranes Moist Neck: No JVD, Normal carotid pulses Cardiac: Reg Rate and Rhythm, Normal S1 and S2, No Murmur Lungs: Normal Breath Sounds, No Wheeze, Rales, Rhonchi Neuro: Alert and responsive, No focal deficits noted Abdomen: Soft, Non-Tender Skin: No rashes noted on visualized skin Musculoskeletal: No Chest Wall Tenderness Extremities: No Clubbing, No Cyanosis, No Edema, Normal Pulses Results 10/01/16 08:09 10/01/16 08:09 Lab Results 09/30/16 09/30/16 10/01/16 15:57 22:55 08:09 WBC 7.7 Hgb 15.0 D Hct 45.5 Plt Count 162 APTT 97.5 H D 60.7 H Sodium Potassium Chloride Carbon Dioxide BUN Creatinine Glucose Calcium Magnesium 10/01/16 10/01/16 08:09 08:09 WBC Hgb Hct Plt Count APTT 57.0 H Sodium 137 Potassium 4.1 Chloride 105 Carbon Dioxide 26 BUN 11 Creatinine 0.91 Glucose 121 H Calcium 9.0 Magnesium 1.7 - Imaging and Cardiology Echo: report reviewed Consult Discharge Plan - Plan Referrals: Ramsey Hurley MD [Primary Care Provider] - 10/14/16 3:45 pm (NEW OFFICE ADDRESS FOR DR HURLEY IS: [address] [place] [address] office phone number: [phone])
--- NOTE | 2016-10-01 12:12 | Carotid Imaging Report ---
Carotid Duplex Patient Name:Juanito Santo Order Number:[id number] Procedure Date:09/30/2016 Date:1925ge:89 yrs Gender:Male Location:[facility] Room #: 2NE29 Home Health Lvn:Valentín Stovall RDCS Referring MD:Channing Wright, RETIREMENT BENEFITS SPECIALIST appointment manager:Ramsey Walker MD Reading MD:Cristofer Marks MD , FACS Primary Indications:CVA Risk Factors Yes/No Hypertension Yes Diabetes Yes Smoker Previous Yes Anticoagulants Yes Hx of CAD/PTCA Yes Previous Vascular Surgery Yes Impressions: Findings: Right carotid system has nonstenotic plaque. Findings: Left proximal ICA has a critical, 80-99% stenosis. Recommendations: Suggest clinical correlation. After imaging the patient returned to their room. Critical findings reported to Joya by phone by Valentín Stovall RDCS. Findings Carotid Duplex: Right: There is nonstenotic plaque in the right proximal common carotid artery with a PSV of 106 cm/s and a EDV of 15 cm/s. There is smooth calcified plaque. There is nonstenotic plaque in the right mid common carotid artery with a PSV of 96 cm/s and a EDV of 14 cm/s. There is smooth, heterogeneous calcified plaque. There is nonstenotic plaque in the right distal common carotid artery with a PSV of 90 cm/s and a EDV of 12 cm/s. There is smooth heterogeneous plaque. There is nonstenotic plaque in the right bifurcation with a PSV of 95 cm/s and a EDV of 19 cm/s. There is smooth heterogeneous plaque. There is nonstenotic plaque in the right proximal internal carotid artery with a PSV of 115 cm/s and a EDV of 29 cm/s. There is smooth heterogeneous plaque. The right mid internal carotid artery has a PSV of 103 cm/s and a EDV of 27 cm/s. The right distal internal carotid artery has a PSV of 99 cm/s and a EDV of 26 cm/s. There is nonstenotic plaque in the right eca with a PSV of 255 cm/s. The right vertebral artery has a PSV of 42 cm/s and a EDV of 9 cm/s. Left: There is nonstenotic plaque in the left proximal common carotid artery with a PSV of 96 cm/s and a EDV of 18 cm/s. There is smooth calcified plaque. There is nonstenotic plaque in the left mid common carotid artery with a PSV of 112 cm/s and a EDV of 24 cm/s. There is smooth calcified plaque. There is nonstenotic plaque in the left distal common carotid artery with a PSV of 109 cm/s and a EDV of 21 cm/s. There is smooth, heterogeneous calcified plaque. There is nonstenotic plaque in the left bifurcation with a PSV of 116 cm/s and a EDV of 20 cm/s. There is irregular, heterogeneous calcified plaque. There is 80-99% stenosis in the left proximal internal carotid artery with a PSV of 380 cm/s and a EDV of 103 cm/s. There is smooth, heterogeneous calcified plaque. There is 60-79% stenosis in the left mid internal carotid artery with a PSV of 184 cm/s and a EDV of 55 cm/s. There is nonstenotic plaque in the left distal internal carotid artery with a PSV of 82 cm/s and a EDV of 19 cm/s. There is smooth calcified plaque. There is nonstenotic plaque in the left eca with a PSV of 193 cm/s and a EDV of 13 cm/s. The left vertebral artery has a PSV of 55 cm/s and a EDV of 14 cm/s. Carotid Results Right PSV EDV Assessment Proximal CCA 106 15 Non Stenotic Plaque Mid CCA 96 14 Non Stenotic Plaque Distal CCA 90 12 Non Stenotic Plaque Bifurcation 95 19 Non Stenotic Plaque Proximal ICA 115 29 Non Stenotic Plaque Mid ICA 103 27 Normal Distal ICA 99 26 Normal ECA 255 0 Non Stenotic Plaque Vertebral Artery 42 9 Normal Left PSV EDV Assessment Proximal CCA 96 18 Non Stenotic Plaque Mid CCA 112 24 Non Stenotic Plaque Distal CCA 109 21 Non Stenotic Plaque Bifurcation 116 20 Non Stenotic Plaque Proximal ICA 380 103 80-99% stenosis Mid ICA 184 55 Post stenotic flow Distal ICA 82 19 Non Stenotic Plaque ECA 193 13 Non Stenotic Plaque Vertebral Artery 55 14 Normal Ratio's Right ICA/CCA Ratio: 1.20 ICA/CCA Values: 115/96 Left ICA/CCA Ratio: 2.75 ICA/CCA Values: 308/112 Updated by Cristofer Marks MD, FACS on 10/01/2016 12:07:08 PM Cristofer Marks MD electronically signed on 10/01/2016 12:07:48 PM with status of Final
--- NOTE | 2016-10-01 14:18 | Discharge Summary ---
Date of Encounter: 10/01/16 Time of Encounter: 12:40 - Discharge Diagnosis (1) NSTEMI (non-ST elevated myocardial infarction) Priority: Primary Status: Acute (2) Essential hypertension Priority: Secondary Status: Chronic (3) Hyperlipidemia Priority: Secondary Status: Chronic Qualifiers: Hyperlipidemia type: pure hypercholesterolemia Qualified Code(s): E78.00 - Pure hypercholesterolemia, unspecified; E78.0 - Pure hypercholesterolemia (4) Hypoglycemia Priority: Secondary Status: Resolved (5) DVT prophylaxis Priority: Secondary Status: Acute - Discharge Medications Prescriptions: Atorvastatin [Lipitor] 40 mg PO HS #30 tab Carvedilol [Coreg] 6.25 mg PO BIDWM #60 tab Home Medications: Aspirin 81 mg PO DAILY 10/11/14 [History] Clopidogrel [Plavix] 75 mg PO DAILY 10/11/14 [History] Docusate Sodium [Dulcolax Stool Softener] 100 mg PO DAILY PRN 10/11/14 [History] Latanoprost [Xalatan] 1 drop LEFT EYE HS 10/11/14 [History] Lisinopril [Zestril] 10 mg PO DAILY 10/11/14 [History] Multivitamin with Minerals [Myvitalife] 1 each PO DAILY 10/11/14 [History] [place]-3 Fatty Acids/Fish Oil [Fish Oil Dr 1,000 mg Softgel] 1 each PO BID [History] Pantoprazole Sodium 40 mg PO DAILY 10/11/14 [History] Tamsulosin HCl [Flomax] 0.4 mg PO DAILY 10/11/14 [History] ALPRAZolam [Xanax 0.5 MG Tablet] 0.5 mg PO DAILY PRN 09/29/16 [History] Cholecalciferol (D-3) [Vitamin D] 1,000 unit PO DAILY 09/29/16 [History] Cyanocobalamin (Vitamin B-12) [Vitamin B-12] 1,000 mcg SL DAILY 09/29/16 [ History] Hydrocortisone 2.5% CREAM [Cortaid] 1 appl TP DAILY PRN 09/29/16 [History] Atorvastatin [Lipitor] 40 mg PO HS #30 tab 10/01/16 [Rx] Carvedilol [Coreg] 6.25 mg PO BIDWM #60 tab 10/01/16 [Rx] Allergies/Adverse Reactions: Allergies No Known Allergies Allergy (Verified 09/29/16 13:26) Procedures/tests Complete & Pending: Procedures Performed prior 72 hours Category Date Time Status US abdomen limited [US] Routine Exams 09/30/16 09:00 Completed EKG [ECG 12 lead ECG] [ECG] Routine Y 09/29/16 18:56 Completed EV carotid duplex imaging BI Routine Y 09/30/16 17:36 Completed EV echocardiogram Routine Y 09/30/16 17:37 Completed Date of admission: 09/29/16 15:40 Primary care physician: Ramsey Hurley MD Consults: 09/29/16 17:30 Consult to Auto Hauler [CONS] Routine Reason for SW Consult: Assess patient for possible home health needs. Patient is non-compliant with dosing on some medications (Xanax) and may require assistance. 09/29/16 17:31 Consult to Physical Therapy [CONS] Routine Comment: Evaluate, develop and implement POC Reason for Consult: Patient becomes unbalanced with ambulation. Assess for stability for post-discharge. 09/29/16 17:32 Consult to Occupational Therapy [CONS] Routine Comment: Evaluate, develop and implement POC Reason for Consult: Patient becomes unbalanced with ambulation. Assess for stability and completion of ADLs for post-discharge. 09/29/16 18:42 Consult to Nutrition [CONS] Routine Comment: Consulting Provider: NUTRITION Reason for Dietary Consult: Diet Education Discharging clinician: Loly Garcia Anticipated date of discharge: 10/01/16 - Patient Status Disposition: Home, Self-Care Condition: Good Functional capacity at discharge: uses cane/walker Overall status at discharge: patient is back to baseline - Discharge Instructions Follow Up With: Ramsey Hurley MD [Primary Care Provider] - 10/14/16 3:45 pm (NEW OFFICE ADDRESS FOR DR HURLEY IS: [address] [place] [address] office phone number: [phone]) Additional Instructions: Please follow up with your primary care physician and shearer helper within one week after your discharge from the hospital. Your home medications simvastatin has been discontinued and atorvastatin has been started. please take this medication as prescribed. Your home dose of Carvedilol has been increased. Please take this medication as prescribed. Please closely monitor your blood pressure at home. Hold your blood pressure medications if your systolic blood pressure is less than 100. Please resume all your home medications as prescribed by your primary care physician. - Diet and Activity Activity: as per physical therapy Diet: low salt diet Hospital course: Mr. Santo is a 89 year old male with PMH of CAD, HLD, HTN, GERD who was admitted for NSTEMI. He was evaluated by cardiology and as per family and patient's request, medical opitimization was recommended. Pt responded appropriately to the medication changes made by cardiology. He was evaluated by physical therapy and outpatient physical therapy was recommended. He is currently chest pain free and cleared for discharge by cardiology. He is hemodynamically stable and will be discharged to home. He will follow up with PCP and cardiology after discharge. Patient and family demonstrate understanding of his diagnosis and agree with the discharge care and plan. - Time Spent with Patient Total time spent providing and/or coordinating discharge services: Greater than 30 minutes - Constitutional Vitals: Temp Pulse Resp BP Pulse Ox 98.2 F 83 16 156/74 95 10/01/16 11:18 10/01/16 11:18 10/01/16 11:18 10/01/16 11:18 10/01/16 11:18 General appearance: Present: cooperative, A&O X 3, pleasant, no acute distress, answers questions appropriately - Head Head exam: Present: atraumatic, normocephalic - Eye Eye exam: Present: conjuntiva pink, sclera anicteric - Respiratory Respiratory exam: Present: CTAB. Absent: respiratory distress, wheezes - Cardiovascular Cardiovascular exam: Present: RRR, +S1, +S2. Absent: diastolic murmur, gallop, rubs, systolic murmur - GI/Abdominal GI/Abdominal exam: Present: normal bowel sounds, soft, no peritoneal signs. Absent: distended, tenderness - Extremities Exam Extremities exam: Present: warm, radial pulses palpable and symetrical. Absent : calf tenderness, pedal edema - Neurological Exam Neurological exam: Present: alert, oriented X3 - Psychiatric Psychiatric exam: Present: normal affect, normal mood
[2016-10-01 14:19] VITALS: BP 122/69
[2016-10-01] MEDS ORDERED: *HR* Heparin 5,000 UNIT/ML VIAL SQ SCH (18:00)
== END 2016-10-01 15:28 | disposition home or self-care (01) ==
LOC: EMEROO 11:20 → 2NENU 11:20
PROVIDERS: ADMIT Internal Medicine; ATTEND Internal Medicine

== ENCOUNTER 2017-02-26 22:06 | Inpatient (IN) ==
--- NOTE | 2017-02-26 23:16 | Emergency Department Note ---
Disposition Clinical Impression: CAP (community acquired pneumonia) Qualifiers: Laterality: left Lung location: lower lobe of lung Qualified Code(s): J18.1 - Lobar pneumonia, unspecified organism Altered mental status Qualifiers: Altered mental status type: unspecified Qualified Code(s): R41.82 - Altered mental status, unspecified Disposition: Admitted As Inpatient Condition: Good Referrals: Ramsey Walker MD [Primary Care Provider] - Forms: ED Satisfaction Letter Neuro HPI - General Chief Complaint: ED Neuro Symptoms/Deficit Stated Complaint: slurring words can't walk Time Seen by Provider: 02/26/17 22:22 Source: patient Mode of arrival: private vehicle Limitations: no limitations Nursing Notes Reviewed: Yes Vital Signs Reviewed: Yes - History of Present Illness HPI Narrative: 89-year-old male history of carotid endarterectomy, CABG, femoral bypass who presents to the ER with a chief complaint of altered mental status. Family reports he was in his usual state of health until this morning. Daughter is at bedside report the other daughter said he seems sick this morning. When the one family member saw him around 5 PM he states he was slurring his words and seemed like he was going to fall down. He did fall while reaching out but did not hit his head. They deny prior history of stroke. States that they have found empty alcohol bottles at home. 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 States that his speech seems to wax and wane today where he will go from slurring his words to being okay. Reports he used to smoke but quit. He did urinate more frequently today but they report they were giving him fluids thinking he was dehydrated. Onset of Symptoms Date: 02/26/17 Onset of Symptoms Time: 10:00 Symptom Onset Unknown: No Timing confirmed by: family member Location: speech, dysarthria, ataxia History of same: No Severity: mild Quality: weakness Symptoms Improving: Yes Improves with: none Worsens with: none Context: other On Anticoagulants: No Associated symptoms: Denies: chest pain, headaches, nausea/vomiting Treatments Prior to Arrival: none - Related Data Home Medications: Home Medications Medication Instructions Recorded Confirmed Aspirin 81 mg PO DAILY 10/11/14 09/29/16 Clopidogrel [Plavix] 75 mg PO DAILY 10/11/14 09/29/16 Docusate Sodium [Dulcolax Stool 100 mg PO DAILY PRN 10/11/14 09/29/16 Softener] Latanoprost [Xalatan] 1 drop LEFT EYE HS 10/11/14 09/29/16 Lisinopril [Zestril] 10 mg PO DAILY 10/11/14 09/29/16 Multivitamin with Minerals 1 each PO DAILY 10/11/14 09/29/16 [Myvitalife] [place]-3 Fatty Acids/Fish Oil [Fish 1 each PO BID 10/11/14 09/29/[address] 1,000 mg Softgel] Pantoprazole Sodium 40 mg PO DAILY 10/11/14 09/29/16 Tamsulosin HCl [Flomax] 0.4 mg PO DAILY 10/11/14 09/29/16 ALPRAZolam [Xanax 0.5 MG Tablet] 0.5 mg PO DAILY PRN 09/29/16 09/29/16 Cholecalciferol (D-3) [Vitamin D] 1,000 unit PO DAILY 09/29/16 09/29/16 Cyanocobalamin (Vitamin B-12) 1,000 mcg SL DAILY 09/29/16 09/29/16 [Vitamin B-12] Hydrocortisone 2.5% CREAM [Cortaid] 1 appl TP DAILY PRN 09/29/16 09/29/16 Previous Rx's Medication Instructions Recorded Atorvastatin [Lipitor] 40 mg PO HS #30 tab 10/01/16 Carvedilol [Coreg] 6.25 mg PO BIDWM #60 tab 10/01/16 Allergies/Adverse Reactions: Allergies Allergy/AdvReac Type Severity Reaction Status Date / Time No Known Allergies Allergy Verified 02/26/17 22:09 All systems ED: reviewed and negative except as stated. Constitutional: Denies: fever Cardiovascular: Denies: chest pain Respiratory: Reports: cough, dyspnea Gastrointestinal: Denies: abdominal pain, nausea, vomiting, diarrhea Neurological: Reports: weakness. Denies: headache, numbness, paresthesias Past Medical History - Past Medical History Attestation: Yes The following information was validated with the patient. Source: patient, obtained from family Medical history: Reports: coronary artery disease, GERD, hyperlipidemia, hypertension Surgical history: Reports: breast surgery, carotid endarterectomy, coronary bypass (CABG) (Quadruple 12 years ago) Psychiatric history: Reports: no psych history - Social History Smoking Status: Former smoker Smokeless Tobacco Status: No Alcohol use: Reports: rarely Drug use: Reports: none Physical Exam - General Limitations: no limitations General appearance: alert, in no apparent distress - Head Head exam: atraumatic, normocephalic, normal inspection - Eye Eye exam: Present: normal appearance, PERRL, EOMI - ENT ENT exam: normal exam - Neck Neck exam: Present: normal inspection, full ROM - Chest Chest inspection: Present: normal inspection, symmetric chest wall rise - Respiratory Respiratory exam: Present: other (Diminished breath sounds on the left.) - Cardiovascular Cardiovascular exam: Present: regular rate, normal rhythm, normal heart sounds - Abdominal Exam Abdominal exam: Present: soft, Non-Tender. Absent: tenderness - Extremities Exam Extremities exam: Present: normal inspection, full ROM - Expanded Upper Extremity Exam Shoulder exam: Present: normal inspection, full ROM Arm exam: Present: normal inspection, full ROM Elbow exam: Present: normal inspection, full ROM Forearm/Wrist exam: Present: normal inspection, full ROM Hand exam: Present: normal inspection, full ROM - Expanded Lower Extremity Exam Hip/Pelvis exam: Present: normal inspection, full ROM Upper leg exam: Present: normal inspection, full ROM Knee exam: Present: normal inspection, full ROM Lower leg exam: Present: normal inspection, full ROM Ankle exam: Present: normal inspection, full ROM Foot/toe exam: Present: normal inspection, full ROM - Neurological Exam Neurological exam: Present: alert, oriented X3, CN II-XII intact. Absent: motor sensory deficit - Expanded Neurological Exam Patient oriented to: Present: person, place, time Speech: Present: fluid speech Cranial nerves: EOM function (II, III, IV, ): Normal, facial sensation (V): Normal, spinal accessory function (XI): Normal, tongue deviation (XII): Normal Motor strength - LUE: 4/5 Motor strength - RUE: 4/5 Motor strength - LLE: 4/5 Motor strength - RLE: 4/5 Sensory exam upper extremity: light touch: Normal Sensory exam lower extremity: light touch: Normal Coma Scale Eye Opening: Spontaneous Coma Scale Motor Response: Obeys Commands Coma Scale Verbal Response: Oriented Coma Scale Total: 15 - Psychiatric Psychiatric exam: Present: normal affect - Skin Skin exam: Present: warm, dry, intact Course Course Narrative: Patient seen and examined. Nonfocal neurologic exam here. He is alert and oriented 3. Family reports his speech is still somewhat off. We will obtain a CT scan of his head as well as EKG, chest x-ray, urinalysis, urine drug screen as well as labs. He was hypoxic upon my evaluation and placed on 2 L nasal cannula. - Reevaluation(s) Reevaluation #1: Discussed results of imaging and labs with the patient family. Agreeable with being admitted to the hospital. Vital Signs Temperature 99.0 F 02/26/17 22:11 Pulse Rate 96 02/26/17 22:11 Respiratory Rate 20 02/26/17 22:11 Blood Pressure 119/80 02/26/17 22:11 O2 Sat by Pulse Oximetry 92 02/26/17 22:11 Temperature 99.0 F 02/26/17 22:11 Pulse Rate 77 02/27/17 00:28 Respiratory Rate 16 02/27/17 00:28 Blood Pressure 175/65 02/27/17 00:28 O2 Sat by Pulse Oximetry 94 02/27/17 00:28 Oxygen Delivery Oxygen Delivery Nasal Cannula Neuro Symptoms/Deficit - MDM Narrative Medical decision making narrative: 89-year-old male presents to the ER due to altered mental status cough. Family reports he was dysarthric earlier today and slurring words. States has also been finding alcohol hidden at his home. He reports he has also had a cough since yesterday. He is well-appearing here was noted to be hypoxic upon arrival at 88% with a good waveform. Chest x-ray with questionable early pneumonia. CT of the head shows no acute abnormalities. Patient placed on 2 L nasal cannula. Will be treated for community-acquired pneumonia. Admitted to the hospitalist service for pneumonia, altered mental status. - Lab Data Lab results reviewed: Yes I reviewed the patient's lab results. Result diagrams: 02/26/17 23:21 02/26/17 23:21 Lab Results 02/26/17 02/26/17 02/26/17 Range/Units 22:13 22:40 22:40 WBC (4.3-11.1) K/mcL RBC (4.19-5.50) M/mcL Hgb (12.9-16.9) g/dL Hct (37.5-50.1) % MCV (83.0-100.0) fL MCH (28.0-33.3) pg MCHC (31.6-35.5) g/dL RDW (11.5-14.5) % Plt Count (140-400) K/mcL MPV (9.4-12.4) fL Immature Gran % (0-4) % Seg Neutrophils % % Lymphocytes % % Monocytes % % Eosinophils % % Basophils % % Neutrophils # (1.6-8.9) K/mcL Lymphocytes # (0.6-4.6) K/mcL Monocytes # (0.0-1.3) K/mcL Eosinophils # (0.0-0.6) K/mcL Basophils # (0.0-0.2) K/mcL PT (9.4-12.1) Seconds INR APTT (26.0-36.0) Seconds Sodium (136-145) mEq/L Potassium (3.5-5.1) mEq/L Chloride (98-107) mEq/L Carbon Dioxide (23-29) mEq/L BUN (8-23) mg/dL Creatinine (0.70-1.30) mg/dL Est GFR ( Amer) (> 60) Est GFR (Non-Af Amer) (> 60) BUN/Creatinine Ratio (6-26) Glucose (70-105) mg/dL POC Glucose 102 H (58-89) Calculated Osmolality (280-300) Calcium (8.6-10.3) mg/dL Troponin I (< 0.04) ng/mL TSH (0.340-5.600) mcIU/mL Urine Color Yellow (Yellow) Urine Clarity Clear (Clear) Urine pH 6.5 (5.0-8.0) pH Units Ur Specific [place] 1.020 (1.010-1.025) Urine Protein 100 H (Neg-Trace) mg/dL Urine Glucose (UA) Normal (Normal) mg/dL Urine Ketones Negative (Negative) mg/dL Urine Blood Small H (Negative) Urine Nitrite Negative (Negative) Urine Bilirubin Negative (Negative) Urine Urobilinogen Normal (Normal) mg/dL Ur Leukocyte Esterase Negative (Negative) Urine Microscopic RBC 5-15 H (0-3) per hpf Urine Microscopic WBC 0-3 (0-3) per hpf Ur Squamous Epith Cells Few (None-Few) per lpf Urine Bacteria None Seen (None-Few) per hpf Hyaline Casts None Seen (None-Few) per lpf Ur Culture Indicated? NO (NO) Urine Opiates Screen Negative (Uyvaib=423) ng/mL Ur Barbiturates Screen Negative (Foeodn=870) ng/mL Ur Phencyclidine Scrn Negative (Cutoff=25) ng/mL Ur Amphetamines Screen Negative (Sadiow=1612) ng/mL U Benzodiazepines Scrn Positive H (Ndwvfw=537) ng/mL Urine Cocaine Screen Negative (Cutoff= 300) ng/mL U Marijuana (THC) Screen Negative (Cutoff = 50) ng/mL Ethyl Alcohol (0-10) mg/dL 02/26/17 02/26/17 02/26/17 Range/Units 23:21 23:21 23:21 WBC 6.2 (4.3-11.1) K/mcL RBC 4.55 (4.19-5.50) M/mcL Hgb 14.2 (12.9-16.9) g/dL Hct 42.3 (37.5-50.1) % MCV 93.0 (83.0-100.0) fL MCH 31.2 (28.0-33.3) pg MCHC 33.6 (31.6-35.5) g/dL RDW 13.2 (11.5-14.5) % Plt Count 168 (140-400) K/mcL MPV 10.5 (9.4-12.4) fL Immature Gran % 0.5 (0-4) % Seg Neutrophils % 75.5 % Lymphocytes % 14.2 % Monocytes % 8.7 % Eosinophils % 0.8 % Basophils % 0.3 % Neutrophils # 4.7 (1.6-8.9) K/mcL Lymphocytes # 0.9 (0.6-4.6) K/mcL Monocytes # 0.5 (0.0-1.3) K/mcL Eosinophils # 0.1 (0.0-0.6) K/mcL Basophils # 0.0 (0.0-0.2) K/mcL PT 12.3 H (9.4-12.1) Seconds INR 1.1 APTT 35.0 (26.0-36.0) Seconds Sodium 132 L (136-145) mEq/L Potassium 3.7 (3.5-5.1) mEq/L Chloride 98 (98-107) mEq/L Carbon Dioxide 23 (23-29) mEq/L BUN 14 (8-23) mg/dL Creatinine 1.06 (0.70-1.30) mg/dL Est GFR ( Amer) > 60 (> 60) Est GFR (Non-Af Amer) > 60 (> 60) BUN/Creatinine Ratio 13 (6-26) Glucose 97 (70-105) mg/dL POC Glucose (58-89) Calculated Osmolality 274 L (280-300) Calcium 9.4 (8.6-10.3) mg/dL Troponin I (< 0.04) ng/mL TSH 3.051 (0.340-5.600) mcIU/mL Urine Color (Yellow) Urine Clarity (Clear) Urine pH (5.0-8.0) pH Units Ur Specific [place] (1.010-1.025) Urine Protein (Neg-Trace) mg/dL Urine Glucose (UA) (Normal) mg/dL Urine Ketones (Negative) mg/dL Urine Blood (Negative) Urine Nitrite (Negative) Urine Bilirubin (Negative) Urine Urobilinogen (Normal) mg/dL Ur Leukocyte Esterase (Negative) Urine Microscopic RBC (0-3) per hpf Urine Microscopic WBC (0-3) per hpf Ur Squamous Epith Cells (None-Few) per lpf Urine Bacteria (None-Few) per hpf Hyaline Casts (None-Few) per lpf Ur Culture Indicated? (NO) Urine Opiates Screen (Drpxuf=422) ng/mL Ur Barbiturates Screen (Wweivn=304) ng/mL Ur Phencyclidine Scrn (Cutoff=25) ng/mL Ur Amphetamines Screen (Qgijwi=2183) ng/mL U Benzodiazepines Scrn (Mnglkk=206) ng/mL Urine Cocaine Screen (Cutoff= 300) ng/mL U Marijuana (THC) Screen (Cutoff = 50) ng/mL Ethyl Alcohol < 10 (0-10) mg/dL 02/26/ Range/Units 23:21 WBC (4.3-11.1) K/mcL RBC (4.19-5.50) M/mcL Hgb (12.9-16.9) g/dL Hct (37.5-50.1) % MCV (83.0-100.0) fL MCH (28.0-33.3) pg MCHC (31.6-35.5) g/dL RDW (11.5-14.5) % Plt Count (140-400) K/mcL MPV (9.4-12.4) fL Immature Gran % (0-4) % Seg Neutrophils % % Lymphocytes % % Monocytes % % Eosinophils % % Basophils % % Neutrophils # (1.6-8.9) K/mcL Lymphocytes # (0.6-4.6) K/mcL Monocytes # (0.0-1.3) K/mcL Eosinophils # (0.0-0.6) K/mcL Basophils # (0.0-0.2) K/mcL PT (9.4-12.1) Seconds INR APTT (26.0-36.0) Seconds Sodium (136-145) mEq/L Potassium (3.5-5.1) mEq/L Chloride (98-107) mEq/L Carbon Dioxide (23-29) mEq/L BUN (8-23) mg/dL Creatinine (0.70-1.30) mg/dL Est GFR ( Amer) (> 60) Est GFR (Non-Af Amer) (> 60) BUN/Creatinine Ratio (6-26) Glucose (70-105) mg/dL POC Glucose (58-89) Calculated Osmolality (280-300) Calcium (8.6-10.3) mg/dL Troponin I 0.08 H* (< 0.04) ng/mL TSH (0.340-5.600) mcIU/mL Urine Color (Yellow) Urine Clarity (Clear) Urine pH (5.0-8.0) pH Units Ur Specific [place] (1.010-1.025) Urine Protein (Neg-Trace) mg/dL Urine Glucose (UA) (Normal) mg/dL Urine Ketones (Negative) mg/dL Urine Blood (Negative) Urine Nitrite (Negative) Urine Bilirubin (Negative) Urine Urobilinogen (Normal) mg/dL Ur Leukocyte Esterase (Negative) Urine Microscopic RBC (0-3) per hpf Urine Microscopic WBC (0-3) per hpf Ur Squamous Epith Cells (None-Few) per lpf Urine Bacteria (None-Few) per hpf Hyaline Casts (None-Few) per lpf Ur Culture Indicated? (NO) Urine Opiates Screen (Wepmjc=047) ng/mL Ur Barbiturates Screen (Aabpmp=766) ng/mL Ur Phencyclidine Scrn (Cutoff=25) ng/mL Ur Amphetamines Screen (Wshrze=6447) ng/mL U Benzodiazepines Scrn (Guoktf=622) ng/mL Urine Cocaine Screen (Cutoff= 300) ng/mL U Marijuana (THC) Screen (Cutoff = 50) ng/mL Ethyl Alcohol (0-10) mg/dL - Radiology Data Radiology results reviewed: Yes I reviewed the patient's radiology results. Chest X-Ray 02/26/17 23:05 IMPRESSION: Patchy left lower lobe opacities may represent atelectasis or early pneumonia. D/ / Xi Christian MD / Xi Christian MD Interpreting Provider: Xi Christian MD Head CT 02/26/17 23:05 IMPRESSION: No acute intracranial abnormality. D/ / Diego Apodaca MD / Diego Apodaca MD Interpreting Provider: Diego Apodaca MD - EKG Data EKG attestation: Yes I reviewed and interpreted this EKG. EKG results narrative: EKG demonstrates sinus rhythm with rate of 84 bpm. Normal axis. Normal intervals. Normal R-wave progression. No ST elevations or depressions. No acute ischemic findings. No significant changes from previous EKG dated . S.B.A.R. - S.B.A.R. Situation: Demographics, MOA Background: Presenting Complaint, Relevant PMH, Meds, & Allergies Assessment: Vital Signs, Course and respsone to treatment, Patient/Family Expectation, Pertinant Lab Results Recommendation: Barrier(s) to disposition, Recommendation based on pending studies, treatments, or consults S.B.A.R. Report Given to: Dr. Reuben Brown.AEugene Repor Time: 02:47 Attestation Statement - Attestation Attestation: I, Joshua Norman MD, personally evaluated this patient and discussed their management with the resident physician. I reviewed the resident's note and agree with the documented findings, medical decision making, and plan of care. 89-year-old male presents to the emergency department with family complaining of some slurred speech and altered mental status which started earlier today. The slurred speech seems to come and go. He has seemed to be more confused than usual. Patient admits to a cough for the past few days. He denies any fever or chest pain or shortness of breath. He denies falling or hitting his head. No prior history of a stroke. No focal weakness. He has had some generalized weakness and a little off balance and actually had a fall at home but no injury from the fall. On examination patient is a well-developed well-nourished elderly male in no acute distress. He is alert and cooperative. He does seem mildly confused. Head is atraumatic. Neck is supple and nontender. Chest is nontender to palpation. Breath sounds are equal bilaterally with no definite rales or wheezes noted. Heart regular rate and rhythm. Abdomen is soft and nontender with normal bowel sounds. No gross focal neurological deficits. Labs reviewed. Chest x-ray shows a left basilar infiltrate, possible pneumonia. Head CT negative. The hospitalist, Dr. Alexis, was consulted and accepted admission of the patient.
[2017-02-26 23:31] LABS: Basophils % 0.3 %; Eosinophils # 0.1 K/mcL (0.0-0.6); Eosinophils % 0.8 %; Hematocrit 42.3 % (37.5-50.1); Hemoglobin 14.2 g/dL (12.9-16.9); Immature Granulocytes % 0.5 % (0-4); Lymphocytes # 0.9 K/mcL (0.6-4.6); Lymphocytes % 14.2 %; Mean Corpuscular HGB Conc 33.6 g/dL (31.6-35.5); Mean Corpuscular Hemoglobin 31.2 pg (28.0-33.3); Mean Platelet Volume 10.5 fL (9.4-12.4); Monocytes # 0.5 K/mcL (0.0-1.3); Monocytes % 8.7 %; Neutrophils # 4.7 K/mcL (1.6-8.9); Platelet Count 168 K/mcL (140-400); Red Blood Count 4.55 M/mcL (4.19-5.50); Red Cell Distribution Width 13.2 % (11.5-14.5); Segmented Neutrophils % 75.5 %
[2017-02-26 23:36] LABS: INR 1.1; Prothrombin Time 12.3 Seconds (9.4-12.1)
[2017-02-26 23:42] LABS: Bilirubin,Urine Negative (Negative); Blood,Urine Small (Negative); Clarity,Urine Clear (Clear); Color,Urine Yellow (Yellow); Glucose,Urine (UA) Normal (Normal); Ketones,Urine Negative (Negative); Leukocyte Esterase,Urine Negative (Negative); Nitrite,Urine Negative (Negative); PH,Urine 6.5 pH Units (5.0-8.0); Protein,Urine 100 mg/dL (Neg-Trace); Urobilinogen,Urine Normal (Normal)
[2017-02-26 23:46] LABS: BUN/Creatinine Ratio 13 (6-26); Blood Urea Nitrogen 14 mg/dL (8-23); Calcium 9.4 mg/dL (8.6-10.3); Carbon Dioxide 23 mEq/L (23-29); Chloride 98 mEq/L (98-107); Glucose 97 mg/dL (70-105); Osmolality,Calculated 274 (280-300); Potassium 3.7 mEq/L (3.5-5.1); Sodium 132 mEq/L (136-145); eGFR For African Americans > 60 (> 60); eGFR For Non-African Americans > 60 (> 60)
[2017-02-26 23:46] LABS: Amphetamine Screen,Urine Negative ng/mL (Cutoff=1000); Barbiturate Screen,Urine Negative ng/mL (Cutoff=200); Benzodiazepines Screen,Urine Positive ng/mL (Cutoff=200); Cannabinoid Screen,Urine Negative ng/mL (Cutoff = 50); Cocaine Screen,Urine Negative ng/mL (Cutoff= 300); Opiate Screen,Urine Negative ng/mL (Cutoff=300); Phencyclidine Screen,Urine Negative ng/mL (Cutoff=25)
[2017-02-26 23:47] LABS: Bacteria,Urine None Seen per hpf (None-Few); Hyaline Casts,Urine None Seen per lpf (None-Few); Squamous Epithelial Cell,Urine Few per lpf (None-Few); WBC,Urine 0-3 per hpf (0-3)
[2017-02-27 00:17] LABS: Thyroid Stimulating Hormone 3.051 mcIU/mL (0.340-5.600)
[2017-02-27 00:37] LABS: Ethanol < 10 mg/dL (0-10)
[2017-02-27] MEDS ORDERED: Azithromycin 500 MG in D5% in Water 250 ML IVPB ONE (01:48)
[2017-02-27] MEDS ORDERED: cefTRIAXone 1,000 MG in Water for inj. (sterile) 20 ML 10 ML IVP ONE (01:48)
[2017-02-27] MEDS ORDERED: cefTRIAXone 1,000 MG in Water for inj. (sterile) 10 ML IVP ONE (02:30)
[2017-02-27] MEDS ORDERED: Naloxone 0.4 MG/ML INJ IVP PRN (04:24)
[2017-02-27] MEDS: *HR* Heparin 5,000 UNIT/ML VIAL SQ SCH ×2 (05:22→17:44)
--- NOTE | 2017-02-27 06:34 | Internal Med History&Physical ---
Date of Encounter: 02/27/17 Time of Encounter: 03:00 Assessment and Plan (1) Slurred speech Current visit: Yes Status: Acute Patient also has weakness. Probably due to pneumonia. However, patient also has carotid stenosis, also consider TIA. - Place patient on continuous cardiac monitoring. - Patient has a recent carotid duplex and echocardiogram done - Patient is on antiplatelet and statin treatment. - Carotid duplex shows stenosis. May consider a vascular consult, will defer to day shift as it is not urgent. (2) Essential hypertension Current visit: No Status: Chronic Continue home medications (3) Coronary artery disease Current visit: No Status: Chronic Denies chest pain. Continue home medications Qualifiers: Coronary Disease-Associated Artery/Lesion type: [place] artery [place] vs. transplanted heart: [place] heart Associated angina: without angina Qualified Code(s): I25.10 - Atherosclerotic heart disease of [place] coronary artery without angina pectoris (4) Carotid stenosis Current visit: No Status: Chronic Management as above Qualifiers: Laterality: bilateral Qualified Code(s): I65.23 - Occlusion and stenosis of bilateral carotid arteries (5) Elevated troponin Current visit: No Status: Acute Probably demand ischemia. We will check 3 sets of troponin (6) DVT prophylaxis Current visit: No Status: Acute Heparin subcutaneously (7) CAP (community acquired pneumonia) Current visit: Yes Status: Acute Will treat patient with IV azithromycin and Rocephin. Oxygen supportive treatment Qualifiers: Laterality: left Lung location: lower lobe of lung Qualified Code(s): J18.1 - Lobar pneumonia, unspecified organism Internal Medicine - H&P: HPI Chief complaint: Cough and slurred speech Admitted From: Home Plans for Post Hospital Care: Home History of present illness: Mr. Santo is a 89 year old male with history of hypertension, CAD S/P CABG, carotid stenosis S/P right-sided carotid bypass, PVD S/P femoral bypass, history of alcoholism, presented to the emergency room for slurred speech. Patient's daughter said the patient has cough and cold symptoms since this morning. Around 5:30 PM, he was found slurred speech, generalized weakness, unsteady gait. Patient denies facial drop or one-sided weakness. Patient's daughter at the beginning think patient has drunk alcohol but later decided to send him to ER because symptoms not improved. Patient has no fever, denies nausea, chest pain, or abdominal pain. In emergency room, chest x-ray shows LLL pneumonia. Patient slurred speech has resolved when I saw him in ER. Past Med Surg Social Fam HX - Past Medical History Medical history: coronary artery disease, GERD, hyperlipidemia, hypertension Psychiatric history: no psych history - Past Surgical History Surgical History: breast surgery, carotid endarterectomy, coronary bypass (CABG) - Social History Smoking Status: Former smoker Smokeless Tobacco Status: No Alcohol use: rarely Drug use: none - Family History Father Living Status: Hx Family Cardiac Disorders: Yes ([place]) Internal Medicine - H&P: Meds Aspirin 81 mg PO DAILY 10/11/14 [History] Clopidogrel [Plavix] 75 mg PO DAILY 10/11/14 [History] Docusate Sodium [Dulcolax Stool Softener] 100 mg PO DAILY PRN 10/11/14 [History] Latanoprost [Xalatan] 1 drop LEFT EYE HS 10/11/14 [History] Lisinopril [Zestril] 10 mg PO DAILY 10/11/14 [History] Multivitamin with Minerals [Myvitalife] 1 each PO DAILY 10/11/14 [History] [place]-3 Fatty Acids/Fish Oil [Fish Oil Dr 1,000 mg Softgel] 1 each PO BID [History] Pantoprazole Sodium 40 mg PO DAILY 10/11/14 [History] Tamsulosin HCl [Flomax] 0.4 mg PO DAILY 10/11/14 [History] ALPRAZolam [Xanax 0.5 MG Tablet] 0.5 mg PO DAILY PRN 09/29/16 [History] Cholecalciferol (D-3) [Vitamin D] 1,000 unit PO DAILY 09/29/16 [History] Cyanocobalamin (Vitamin B-12) [Vitamin B-12] 1,000 mcg SL DAILY 09/29/16 [ History] Hydrocortisone 2.5% CREAM [Cortaid] 1 appl TP DAILY PRN 09/29/16 [History] Atorvastatin [Lipitor] 40 mg PO HS #30 tab 10/01/16 [Rx] Carvedilol [Coreg] 6.25 mg PO BIDWM #60 tab 10/01/16 [Rx] 3 Allergy/AdvReac Type Severity Reaction Status Date / Time No Known Allergies Allergy Verified 02/26/17 22:09 All Systems PM: A 10-system review of systems was performed and is negative for pertinent findings except as documented above in the HPI. - Constitutional Vitals: Temp Pulse Resp BP Pulse Ox 98.9 F 71 16 160/68 97 02/27/17 05:05 02/27/17 05:05 02/27/17 05:05 02/27/17 05:05 02/27/17 05:05 General appearance: Present: A&O X 3, no acute distress, answers questions appropriately - Head Head exam: Present: atraumatic, normocephalic - Eye Eye exam: Present: PERRL, conjuntiva pink, sclera anicteric Pupils: Present: PERRL - Neck Neck exam general surgery: Present: supple, trachea midline. Absent: lymphadenopathy - Respiratory Respiratory exam: Present: CTAB, rales (On left lung base). Absent: accessory muscle use, rhonchi, wheezes - Cardiovascular Cardiovascular exam: Present: RRR, +S1, +S2. Absent: diastolic murmur, gallop, rubs, systolic murmur - GI/Abdominal GI/Abdominal exam: Present: normal bowel sounds, soft, no peritoneal signs. Absent: distended, tenderness - Extremities Exam Extremities exam: Present: warm, radial pulses palpable and symmetrical. Absent : calf tenderness, cyanotic, pedal edema - Neurological Exam Neurological exam: Present: CN II-XII intact, oriented X3, no focal deficits. Absent: pronater drift, facial droop, speech deficit - Skin Skin exam: Present: dry, intact Internal Med - H&P Results - Labs CBC & Chem 7: 02/26/17 23:21 02/26/17 23:21
[2017-02-27] MEDS ORDERED: Water for inj. (sterile) 10 ML IV ONE (10:10)
[2017-02-27] MEDS ORDERED: CefTRIAXone 1,000 MG VIAL ONE (10:13)
[2017-02-27] MEDS: Aspirin 81 MG TAB.CHEW PO SCH (10:19)
[2017-02-27] MEDS: cefTRIAXone 1,000 MG in Water for inj. (sterile) 10 ML IVP SCH (10:19)
[2017-02-27] MEDS: Folic Acid 1 MG TABLET PO SCH (10:19)
[2017-02-27] MEDS: Thiamine (B-1) 100 MG TABLET PO SCH (10:19)
[2017-02-27] MEDS ORDERED: Acetaminophen 325 MG TABLET PO PRN (10:55)
--- NOTE | 2017-02-27 13:16 | Event Note ---
Date of Encounter: 02/27/17 Time of Encounter: 13:13 89/male Multiple comorbid conditions. Admitted with slurred speech. Likely intoxication. CT head was negative. Noted that patient has a elevated troponin. This is likely secondary to demand ischemia. Patient is presently on aspirin/studies/beta kash/lisinopril. Discussed with the patient regarding specialist consult in terms of cardiology and further intervention. Patient is not keen for any further intervention at this point. I have spoken to patient's daughter about the same and she informed me that few months that patient refused cardiac catheterization If patient changes mind we will consult cardiology.
[2017-02-27] MEDS ORDERED: FLUARIX QUAD 2017-18 36MOS UP/PF 0.5 ML SYRINGE IM ONE (14:24)
[2017-02-27] MEDS: Azithromycin 500 MG in D5% in Water 250 ML IVPB SCH (17:45)
--- NOTE | 2017-02-27 18:32 | Electrocardiograph Report ---
[address] [address] Test Date: 2017-02-26 Pat Name: Juanito Santo Department: 104 Room: [facility] Gender: M Identity Management Consultant: : [id number] Requested By: Jose Harmon Order Number: [id number] Reading MD: Augustin Zaragoza Measurements Intervals [place] Rate: 84 P: 72 [place]: 164 QRS: 36 QRSD: 100 T: 62 QT: 360 QTc: 401 Interpretive Statements SINUS RHYTHM POSSIBLE LEFT ATRIAL ENLARGEMENT INDETERMINATE AXIS INCOMPLETE RIGHT BUNDLE BRANCH BLOCK Electronically Signed On 02-27-2017 18:30:39 EST by Augustin Zaragoza
[2017-02-27] MEDS: ALPRAZolam 0.5 MG TABLET PO PRN (20:41)
[2017-02-28 05:13] LABS: Basophils % 0.2 %; Eosinophils # 0.1 K/mcL (0.0-0.6); Eosinophils % 1.3 %; Hematocrit 39.2 % (37.5-50.1); Hemoglobin 13.4 g/dL (12.9-16.9); Immature Granulocytes % 0.4 % (0-4); Lymphocytes # 1.5 K/mcL (0.6-4.6); Mean Corpuscular HGB Conc 34.2 g/dL (31.6-35.5); Mean Corpuscular Hemoglobin 30.8 pg (28.0-33.3); Mean Corpuscular Volume 90.1 fL (83.0-100.0); Mean Platelet Volume 10.6 fL (9.4-12.4); Monocytes # 0.5 K/mcL (0.0-1.3); Monocytes % 9.1 %; Neutrophils # 3.2 K/mcL (1.6-8.9); Platelet Count 131 K/mcL (140-400); Red Blood Count 4.35 M/mcL (4.19-5.50); Red Cell Distribution Width 13.4 % (11.5-14.5)
[2017-02-28 05:27] LABS: BUN/Creatinine Ratio 15 (6-26); Blood Urea Nitrogen 18 mg/dL (8-23); Calcium 8.5 mg/dL (8.6-10.3); Carbon Dioxide 26 mEq/L (23-29); Chloride 101 mEq/L (98-107); Glucose 99 mg/dL (70-105); Osmolality,Calculated 282 (280-300); Potassium 3.4 mEq/L (3.5-5.1); Sodium 135 mEq/L (136-145); eGFR For African Americans > 60 (> 60); eGFR For Non-African Americans 58 (> 60)
[2017-02-28] MEDS: *HR* Heparin 5,000 UNIT/ML VIAL SQ SCH ×2 (05:51→16:20)
[2017-02-28] MEDS: Folic Acid 1 MG TABLET PO SCH (08:38)
[2017-02-28] MEDS: Aspirin 81 MG TAB.CHEW PO SCH (08:38)
[2017-02-28] MEDS: Thiamine (B-1) 100 MG TABLET PO SCH (08:38)
[2017-02-28] MEDS: cefTRIAXone 1,000 MG in Water for inj. (sterile) 10 ML IVP SCH (08:39)
--- NOTE | 2017-02-28 15:25 | Internal Med Progress Note ---
Date of Encounter: 03/01/17 Time of Encounter: 15:21 - Assessment and plan (1) Slurred speech Current Visit: Yes Status: Acute Assessment and plan: Admitted with a slurred speech. Initially thought it was a related to the neurovascular issue but noted that patient had a benzodiazepines in the urine toxicology. It seems that patient accidentally took a couple of more tablets of benzodiazepines which is a prescription medication to him. Patient is back to his baseline. His daughter at the bedside. Patient and his daughter does not on any further intervention or any further workup. Plan: Patient and his daughter prefers to go home tomorrow in view of upcoming [place]. (2) CAP (community acquired pneumonia) Current Visit: Yes Status: Acute Assessment and plan: Presently on IV ceftriaxone/azithromycin. We will continue antibiotics for now. Upon discharge we will give oral antibiotics. Qualifiers: Laterality: left Lung location: lower lobe of lung Qualified Code(s): J18.1 - Lobar pneumonia, unspecified organism (3) Essential hypertension Current Visit: No Status: Chronic Assessment and plan: Well controlled. (4) Coronary artery disease Current Visit: No Status: Chronic Assessment and plan: Stable. Review of sleep patient declined cardiac catheterization. Had a long discussion with the patient and family. The is not in favor of any further cardiac workup. Qualifiers: Coronary Disease-Associated Artery/Lesion type: [place] artery [place] vs. transplanted heart: [place] heart Associated angina: without angina Qualified Code(s): I25.10 - Atherosclerotic heart disease of [place] coronary artery without angina pectoris (5) Carotid stenosis Current Visit: No Status: Chronic Assessment and plan: Patient declined any further workup for carotid stenosis Qualifiers: Laterality: bilateral Qualified Code(s): I65.23 - Occlusion and stenosis of bilateral carotid arteries - Subjective Interval history: Patient seen and examined. Chart reviewed. Patient is comfortably sitting up in a chair. patient's daughter at bedside. Patient patient denies any chest pain, shortness of breath, nausea, vomiting, - Constitutional Vitals: Temp Pulse Resp BP Pulse Ox 98.0 F 76 16 126/68 97 02/28/17 11:59 02/28/17 11:59 02/28/17 11:59 02/28/17 11:59 02/28/17 11:59 General appearance: Present: A&O X 3, no acute distress, answers questions appropriately - Head Head exam: Present: atraumatic, normocephalic - Eye Eye exam: Present: PERRL, conjuntiva pink, sclera anicteric Pupils: Present: PERRL - Neck Neck exam general surgery: Present: supple, trachea midline. Absent: lymphadenopathy - Respiratory Respiratory exam: Present: CTAB. Absent: accessory muscle use, rales, rhonchi, wheezes - Cardiovascular Cardiovascular exam: Present: RRR, +S1, +S2. Absent: diastolic murmur, gallop, rubs, systolic murmur - GI/Abdominal GI/Abdominal exam: Present: normal bowel sounds, soft, no peritoneal signs. Absent: distended, tenderness - Extremities Exam Extremities exam: Present: warm, radial pulses palpable and symmetrical. Absent : calf tenderness, cyanotic, pedal edema - Neurological Exam Neurological exam: Present: CN II-XII intact, oriented X3, no focal deficits. Absent: pronater drift, facial droop, speech deficit - Skin Skin exam: Present: dry, intact Internal Medicine: Result - Labs CBC & Chem 7: 03/01/17 05:11 03/01/17 05:11 Labs: Short CBC 02/28/17 Range/Units 04:26 WBC 5.3 (4.3-11.1) K/mcL Hgb 13.4 (12.9-16.9) g/dL Hct 39.2 (37.5-50.1) % Plt Count 131 L (140-400) K/mcL Neutrophils # 3.2 (1.6-8.9) K/mcL BMP 02/28/17 04:26 Sodium 135 L Potassium 3.4 L Chloride 101 Carbon Dioxide 26 BUN 18 Creatinine 1.18 Glucose 99 Calcium 8.5 L - ABG Interpretation ABG results: PT/INR, D-dimer PT 12.3 Seconds (9.4-12.1) H 02/26/17 23:21 Consult Discharge Plan - Plan Referrals: Ramsey Walker MD [Primary Care Provider] - Prescriptions: Levofloxacin [Levaquin] 500 mg PO DAILY #2 tablet Oseltamivir [Tamiflu] 75 mg PO BID #10 capsule predniSONE [PredniSONE] 40 mg PO ONCE #3 tablet
[2017-02-28] MEDS: Azithromycin 500 MG in D5% in Water 250 ML IVPB SCH (16:21)
[2017-02-28] MEDS: ALPRAZolam 0.5 MG TABLET PO PRN (20:48)
[2017-03-01 10:00] LABS: Alanine Aminotransferase 22 Units/L (7-52); Albumin 3.2 g/dL (3.5-5.7); Albumin/Globulin Ratio 1.6 (1.1-2.2); Alkaline Phosphatase 42 Units/L (34-104); Aspartate Amino Transferase 40 Units/L (13-39); BUN/Creatinine Ratio 15 (6-26); Bilirubin,Total 0.5 mg/dL (0.3-1.0); Blood Urea Nitrogen 15 mg/dL (8-23); Calcium 8.6 mg/dL (8.6-10.3); Carbon Dioxide 27 mEq/L (23-29); Chloride 105 mEq/L (98-107); Glucose 96 mg/dL (70-105); Osmolality,Calculated 287 (280-300); Potassium 3.8 mEq/L (3.5-5.1); Sodium 138 mEq/L (136-145); Total Protein 5.2 g/dL (6.4-8.9); eGFR For African Americans > 60 (> 60); eGFR For Non-African Americans > 60 (> 60)
[2017-03-01 10:41] LABS: Basophils % 0.3 %; Hematocrit 41.1 % (37.5-50.1); Hemoglobin 13.6 g/dL (12.9-16.9); Immature Granulocytes % 0.3 % (0-4); Lymphocytes # 1.4 K/mcL (0.6-4.6); Lymphocytes % 35.5 %; Mean Corpuscular HGB Conc 33.1 g/dL (31.6-35.5); Mean Corpuscular Hemoglobin 30.8 pg (28.0-33.3); Mean Platelet Volume 10.6 fL (9.4-12.4); Monocytes # 0.4 K/mcL (0.0-1.3); Monocytes % 9.4 %; Neutrophils # 2.1 K/mcL (1.6-8.9); Platelet Count 145 K/mcL (140-400); Red Blood Count 4.42 M/mcL (4.19-5.50); Red Cell Distribution Width 13.3 % (11.5-14.5); Segmented Neutrophils % 53.5 %
[2017-03-01 11:20] VITALS: BP 114/61
[2017-03-01] MEDS ORDERED: Oseltamivir Phosphate 30 MG CAPSULE PO SCH (12:45)
--- NOTE | 2017-03-01 13:05 | Discharge Summary ---
Date of Encounter: 03/02/17 Time of Encounter: 13:00 - Discharge Diagnosis (1) Slurred speech Priority: Primary Status: Acute (2) CAP (community acquired pneumonia) Priority: Primary Status: Acute Qualifiers: Laterality: left Lung location: lower lobe of lung Qualified Code(s): J18.1 - Lobar pneumonia, unspecified organism (3) Essential hypertension Priority: Secondary Status: Chronic (4) Coronary artery disease Priority: Secondary Status: Chronic Qualifiers: Coronary Disease-Associated Artery/Lesion type: [place] artery [place] vs. transplanted heart: [place] heart Associated angina: without angina Qualified Code(s): I25.10 - Atherosclerotic heart disease of [place] coronary artery without angina pectoris (5) Carotid stenosis Priority: Secondary Status: Chronic Qualifiers: Laterality: bilateral Qualified Code(s): I65.23 - Occlusion and stenosis of bilateral carotid arteries - Discharge Medications Prescriptions: Levofloxacin [Levaquin] 500 mg PO DAILY #2 tablet Oseltamivir [Tamiflu] 75 mg PO BID #10 capsule predniSONE [PredniSONE] 40 mg PO ONCE #3 tablet Home Medications: Aspirin 81 mg PO DAILY 10/11/14 [History] Clopidogrel [Plavix] 75 mg PO DAILY 10/11/14 [History] Latanoprost [Xalatan] 1 drop LEFT EYE HS 10/11/14 [History] Lisinopril [Zestril] 10 mg PO DAILY 10/11/14 [History] Multivitamin with Minerals [Myvitalife] 1 each PO DAILY 10/11/14 [History] [place]-3 Fatty Acids/Fish Oil [Fish Oil Dr 1,000 mg Softgel] 1 each PO BID [History] Pantoprazole Sodium 40 mg PO DAILY 10/11/14 [History] Tamsulosin HCl [Flomax] 0.4 mg PO DAILY 10/11/14 [History] ALPRAZolam [Xanax 0.5 MG Tablet] 0.5 mg PO DAILY PRN 09/29/16 [History] Cholecalciferol (D-3) [Vitamin D] 1,000 unit PO DAILY 09/29/16 [History] Cyanocobalamin (Vitamin B-12) [Vitamin B-12] 1,000 mcg SL DAILY 09/29/16 [ History] Carvedilol [Coreg] 6.25 mg PO BIDWM 02/27/17 [History] Simvastatin [Zocor] 40 mg PO HS 02/27/17 [History] Atorvastatin [Lipitor] 40 mg PO HS tablet 03/01/17 [Rx] Docusate [Colace] 100 mg PO DAILY PRN capsule 03/01/17 [Rx] Levofloxacin [Levaquin] 500 mg PO DAILY #2 tablet 03/01/17 [Rx] Oseltamivir [Tamiflu] 75 mg PO BID #10 capsule 03/01/17 [Rx] predniSONE [PredniSONE] 40 mg PO ONCE #3 tablet 03/01/17 [Rx] Allergies/Adverse Reactions: 3 Allergy/AdvReac Type Severity Reaction Status Date / Time No Known Allergies Allergy Verified 02/26/17 22:09 Procedures/tests Complete & Pending: Procedures Performed prior 72 hours Category Date Time Status CT abd pelvis w iv no oral [CT] Routine Cat Scan 03/01/17 11:[address] chest with contrast [CT chest w con] [CT] Routine Cat Scan 03/01/17 11:13 Draft ECG 12 lead ECG [ECG] Routine Y 02/26/17 22:27 Completed Date of admission: 02/27/17 05:52 Primary care physician: Ramsey Walker MD Discharging clinician: Mann Bardales - Patient Status Disposition: Home, Self-Care Condition: Good Functional capacity at discharge: independent ambulation - Discharge Instructions Follow Up With: Ramsey Walker MD [Primary Care Provider] - - Diet and Activity Activity: as per physical therapy Diet: low fat, low cholesterol, low salt diet Interval History: Mr. Santo is a 89 year old male with history of hypertension, CAD S/P CABG, carotid stenosis S/P right-sided carotid bypass, PVD S/P femoral bypass, history of alcoholism, presented to the emergency room for slurred speech. Patient's daughter said the patient has cough and cold symptoms since this morning. Around 5:30 PM, he was found slurred speech, generalized weakness, unsteady gait. Patient denies facial drop or one-sided weakness. Patient's daughter at the beginning think patient has drunk alcohol but later decided to send him to ER because symptoms not improved. Patient has no fever, denies nausea, chest pain, or abdominal pain. In emergency room, chest x-ray shows LLL pneumonia. Hospital course: Hospital course: Patient was hospitalized. Blood cultures were done. Ceftriaxone/azithromycin started. Patient was started on intravenous steroids and inhaled bronchodilators. [place] protocol initiated. Patient tolerated to this treatment extremely well. Patient started recovering back. Noted that there was a bruise on his left flank. CT scan of the chest abdomen pelvis was done. It did not show any chronic/acute changes secondary to trauma. Noted that patient's influenza test was positive. Today being the [facility] [place] patient and his family are very keen to go home. I recommended them to stay overnight for observation. Family/patient refused. Upon arrival patient's troponin was positive. Patient and family member does not want anything to be done in terms of cardiac workup including catheterization. Plan: Prescription given for levofloxacin/prednisone/Tamiflu. Patient will follow up with his primary care provider within a 1 week. At the time of discharge patient/family members does not have any questions, concerns or recommendation. - Time Spent with Patient Total time spent providing and/or coordinating discharge services: - Constitutional Vitals: Temp Pulse Resp BP Pulse Ox 98.1 F 60 18 114/61 93 03/01/17 11:15 03/01/17 11:15 03/01/17 11:15 03/01/17 11:15 03/01/17 11:15 General appearance: Present: A&O X 3, no acute distress, answers questions appropriately - Head Head exam: Present: atraumatic, normocephalic - Eye Eye exam: Present: PERRL, conjuntiva pink, sclera anicteric Pupils: Present: PERRL - Neck Neck exam general surgery: Present: supple, trachea midline. Absent: lymphadenopathy - Respiratory Respiratory exam: Present: CTAB. Absent: accessory muscle use, rales, rhonchi, wheezes - Cardiovascular Cardiovascular exam: Present: RRR, +S1, +S2. Absent: diastolic murmur, gallop, rubs, systolic murmur - GI/Abdominal GI/Abdominal exam: Present: normal bowel sounds, soft, no peritoneal signs. Absent: distended, tenderness - Extremities Exam Extremities exam: Present: warm, radial pulses palpable and symmetrical. Absent : calf tenderness, cyanotic, pedal edema - Neurological Exam Neurological exam: Present: CN II-XII intact, oriented X3, no focal deficits. Absent: pronater drift, facial droop, speech deficit - Skin Skin exam: Present: dry, intact
[2017-03-01] MEDS: Thiamine (B-1) 100 MG TABLET PO SCH (14:49)
[2017-03-01] MEDS: Aspirin 81 MG TAB.CHEW PO SCH (14:49)
[2017-03-01] MEDS: cefTRIAXone 1,000 MG in Water for inj. (sterile) 10 ML IVP SCH (14:50)
[2017-03-01] MEDS: Folic Acid 1 MG TABLET PO SCH (14:50)
== END 2017-03-01 15:15 | disposition home or self-care (01) | DRG 194 ==
LOC: 2ANU 22:06 → EMEROO 22:06 → 2ANU 02-27 04:45
PROVIDERS: ADMIT Family Medicine; ATTEND Family Medicine